=== PATIENT | male | born 1955 | race Caucasian/White ===

== ENCOUNTER 2023-07-18 14:47 | Inpatient (IN) | payer MEDICARE, MEDICAID ==
[~2023-07-18] VITALS: Ht 182.9 cm; Wt 72.5 kg
[2023-07-18] MEDS ORDERED: VANCOMYCIN 1GM/WATER(PEG/NADA) 200 ML IV ONE (16:00)
[2023-07-18] MEDS ORDERED: MORPHINE SULFATE 4 MG/ML SYRINGE IVP PRN (16:00)
[2023-07-18] MEDS ORDERED: DEXTROSE 50%-WATER 25 GM/50 ML SYRINGE IVP PRN (16:00)
[2023-07-18] MEDS ORDERED: ONDANSETRON HCL 4 MG/2 ML VIAL IVP PRN (16:00)
[2023-07-18] MEDS ORDERED: PIPERACILLIN/TAZO 3.375 GM/D5W 50 ML IV ONE (17:00)
[2023-07-18] MEDS: HEPARIN SODIUM,PORCINE 5,000 UNITS/ML VIAL SQ SCH (17:10)
[2023-07-18 17:20] LABS: BASOPHILS % (AUTO) 0.1 % (0.0-2.0); EOSINOPHILS % (AUTO) 0 % (1.0-6.0); HEMATOCRIT 28.6 % (41-53); HEMOGLOBIN 8.9 g/dL (13.5-17.5); LYMPHOCYTES # (AUTO) 0.3 K/uL (1.0-4.8); MEAN CORPUSCULAR VOLUME 68 fL (80-100); MONOCYTES # (AUTO) 0.4 K/uL (0.1-1.0); NEUTROPHILS # (AUTO) 33.4 K/uL (1.8-7.7); PLATELET COUNT (AUTO) 336 K/uL (150-450); RED BLOOD CELL COUNT(AUTO) 4.22 MIL/uL (4.50-5.90); RED CELL DISTRIBUTION WIDTH 16.6 % (11.5-14.5)
[2023-07-18 17:32] LABS: NEUTROPHILS % (AUTO) 97.9 % (40.0-70.0)
[2023-07-18 17:35] LABS: WHITE BLOOD COUNT (AUTO) 34.1 K/uL (4.5-11.0)
[2023-07-18 17:38] LABS: ANION GAP 8 mmol/L (8-16); CARBON DIOXIDE 29 mmol/L (22-29); CHLORIDE 99 mmol/L (98-107); CREATININE 1.08 mg/dL (0.60-1.30); GLOMERULAR FILTR. RATE CALC > 60 mL/min (>60); GLUCOSE,RANDOM 141 mg/dL (70-110); POTASSIUM 3.9 mmol/L (3.5-5.1); SODIUM SERUM 136 mmol/L (136-145); UREA NITROGEN, BLOOD 24 mg/dL (7-18)
[2023-07-18 17:49] LABS: LACTIC ACID 2.4 mmol/L (0.4-2.0)
[2023-07-18 17:52] LABS: ALANINE AMINOTRANSFERASE 11 U/L (12-78); ALBUMIN 1.4 g/dL (3.4-5.0); ALKALINE PHOSPHATASE 130 U/L (46-116); ASPARTATE AMINOTRANSFERASE 47 U/L (15-37); C-REACTIVE PROTEIN QUANT 19.84 mg/dL (0.00-0.30); TOTAL PROTEIN, SERUM 7.5 g/dL (6.4-8.2)
[2023-07-18 17:59] LABS: COVID AG,FIA SOURCE NASAL SWAB
[2023-07-18 18:00] LABS: RBC MORPHOLOGY COMMENT ABNORMAL RBC MORPH
[2023-07-18 18:03] LABS: ERYTHROCYTE SEDIMENTATION RATE 83 MM/HR (0-20)
[2023-07-18 18:11] LABS: SARS-COV2 (COVID) ANTIGEN,FIA Negative (Negative)
[2023-07-18] MEDS ORDERED: 0.9% SODIUM CHLORIDE 10 ML SYRINGE IVP PRN (19:00)
[2023-07-18] MEDS ORDERED: SODIUM CHLORIDE 0.9% 2,750 ML IV ONE (19:00)
[2023-07-18 21:10] VITALS: BP 122/71; PULSE 150; RESP 22; TEMP 99.5
[2023-07-18] MEDS ORDERED: DILTIAZEM HCL 5 MG/ML 5 ML VIAL IVP ONE (21:30)
[2023-07-18] MEDS: FAMOTIDINE 20 MG TABLET PO SCH (21:50)
[2023-07-18] MEDS: DOCUSATE SODIUM 100 MG CAPSULE PO SCH (21:51)
[2023-07-18] MEDS: MORPHINE SULFATE 2 MG/ML SYRINGE IVP PRN (21:51)
[2023-07-18] MEDS: CARVEDILOL 6.25 MG TABLET PO SCH (21:51)
[2023-07-18] MEDS: PIPERACILLIN/TAZO 3.375 GM/D5W 50 ML IV SCH (23:54)
[2023-07-19] VITALS: BP 118/60; PULSE 107; RESP 18; TEMP 98.1
[2023-07-19 00:38] LABS: TROPONIN I-HIGH SENSITIVITY 77 ng/L (<76)
[2023-07-19 04:00] VITALS: BP 96/56; PULSE 105; RESP 18; TEMP 97.9
[2023-07-19] MEDS: PIPERACILLIN/TAZO 3.375 GM/D5W 50 ML IV SCH ×3 (05:40→17:13)
[2023-07-19 07:20] LABS: BASOPHILS % (AUTO) 0.1 % (0.0-2.0); EOSINOPHILS % (AUTO) 0 % (1.0-6.0); HEMATOCRIT 24.7 % (41-53); HEMOGLOBIN 7.8 g/dL (13.5-17.5); LYMPHOCYTES # (AUTO) 0.3 K/uL (1.0-4.8); LYMPHOCYTES % (AUTO) 1.2 % (22.0-44.0); MEAN CORPUSCULAR HEMOGLOBIN 21.3 pg (26.0-34.0); MEAN CORPUSCULAR HGB CONC 31.5 G/dL (31.0-37.0); MEAN CORPUSCULAR VOLUME 68 fL (80-100); MONOCYTES # (AUTO) 0.3 K/uL (0.1-1.0); MONOCYTES % (AUTO) 1.4 % (2.0-9.0); NEUTROPHILS # (AUTO) 23.9 K/uL (1.8-7.7); PLATELET COUNT (AUTO) 217 K/uL (150-450); RED BLOOD CELL COUNT(AUTO) 3.65 MIL/uL (4.50-5.90); RED CELL DISTRIBUTION WIDTH 16.9 % (11.5-14.5); WHITE BLOOD COUNT (AUTO) 24.6 K/uL (4.5-11.0)
[2023-07-19 07:25] LABS: NEUTROPHILS % (AUTO) 97.3 % (40.0-70.0)
[2023-07-19 07:38] LABS: TROPONIN I-HIGH SENSITIVITY 68 ng/L (<76)
[2023-07-19 07:40] LABS: ANION GAP 10 mmol/L (8-16); CALCIUM, TOTAL 8.3 mg/dL (8.8-10.5); CARBON DIOXIDE 25 mmol/L (22-29); CHLORIDE 101 mmol/L (98-107); CREATININE 0.97 mg/dL (0.60-1.30); GLOMERULAR FILTR. RATE CALC > 60 mL/min (>60); GLUCOSE,RANDOM 115 mg/dL (70-110); POTASSIUM 3.9 mmol/L (3.5-5.1); SODIUM SERUM 136 mmol/L (136-145); UREA NITROGEN, BLOOD 29 mg/dL (7-18)
[2023-07-19] MEDS: DOCUSATE SODIUM 100 MG CAPSULE PO SCH ×3 (09:00→21:56)
[2023-07-19] MEDS: HEPARIN SODIUM,PORCINE 5,000 UNITS/ML VIAL SQ SCH ×2 (09:20→17:14)
[2023-07-19] MEDS: HYDROCODONE/ACETAMINOPHEN 5-325 MG TABLET PO PRN ×2 (09:21→21:58)
[2023-07-19] MEDS: FAMOTIDINE 20 MG TABLET PO SCH ×2 (09:21→21:56)
[2023-07-19] MEDS: CARVEDILOL 6.25 MG TABLET PO SCH ×2 (09:21→21:56)
[2023-07-19] MEDS: MULTIVITAMINS WITH MINERALS, THERAPEUTIC TABLET PO SCH (09:21)
[2023-07-19] MEDS: VANCOMYCIN 1GM/WATER(PEG/NADA) 200 ML IV SCH ×2 (09:28→21:57)
[2023-07-19 17:21] LABS: GLUCOMETER DEV NAME(LOC) 5S.2C; GLUCOSE,POINT OF CARE 122 MG/DL (70-110)
[2023-07-19 17:21] LABS: GLUCOMETER DEV NAME(LOC) 5S.2C; GLUCOSE,POINT OF CARE 98 MG/DL (70-110)
[2023-07-19] MEDS: INSULIN LISPRO 100 UNITS/ML SQ PRN ×2 (17:27→22:51)
[2023-07-19] MEDS: MORPHINE SULFATE 2 MG/ML SYRINGE IVP PRN (18:43)
[2023-07-19 20:00] VITALS: BP 96/59; PULSE 74; RESP 18; TEMP 98.1
[2023-07-20] VITALS: BP 98/65; PULSE 82; RESP 18; TEMP 98.8
[2023-07-20] MEDS: PIPERACILLIN/TAZO 3.375 GM/D5W 50 ML IV SCH ×4 (00:11→17:20)
[2023-07-20] MEDS: HEPARIN SODIUM,PORCINE 5,000 UNITS/ML VIAL SQ SCH ×3 (00:11→17:24)
[2023-07-20] MEDS: MORPHINE SULFATE 2 MG/ML SYRINGE IVP PRN ×3 (00:12→13:17)
[2023-07-20 01:11] LABS: GLUCOMETER DEV NAME(LOC) 5N.1C; GLUCOSE,POINT OF CARE 151 MG/DL (70-110)
[2023-07-20 01:16] LABS: GLUCOMETER DEV NAME(LOC) 5N.2C; GLUCOSE,POINT OF CARE 167 MG/DL (70-110)
[2023-07-20] MEDS: HYDROCODONE/ACETAMINOPHEN 5-325 MG TABLET PO PRN ×5 (02:04→17:19)
[2023-07-20 04:00] VITALS: BP 95/60; PULSE 80; RESP 19; TEMP 97.8
[2023-07-20] MEDS: INSULIN LISPRO 100 UNITS/ML SQ PRN ×3 (06:40→17:30)
[2023-07-20 08:02] LABS: GLUCOMETER DEV NAME(LOC) 5N.2C; GLUCOSE,POINT OF CARE 174 MG/DL (70-110)
[2023-07-20 08:52] VITALS: BP 92/54; PULSE 73; RESP 15; TEMP 94
[2023-07-20 09:00] LABS: ANION GAP 10 mmol/L (8-16); CALCIUM, TOTAL 8.5 mg/dL (8.8-10.5); CARBON DIOXIDE 24 mmol/L (22-29); CHLORIDE 100 mmol/L (98-107); CREATININE 1.03 mg/dL (0.60-1.30); GLOMERULAR FILTR. RATE CALC > 60 mL/min (>60); GLUCOSE,RANDOM 141 mg/dL (70-110); POTASSIUM 3.3 mmol/L (3.5-5.1); SODIUM SERUM 134 mmol/L (136-145); UREA NITROGEN, BLOOD 47 mg/dL (7-18); VANCOMYCIN,RANDOM 18.2 mcg/mL (25.0-50.0)
[2023-07-20] MEDS: CARVEDILOL 6.25 MG TABLET PO SCH ×2 (09:00→21:07)
[2023-07-20] MEDS: FAMOTIDINE 20 MG TABLET PO SCH ×2 (09:09→21:07)
[2023-07-20] MEDS: DOCUSATE SODIUM 100 MG CAPSULE PO SCH ×3 (09:10→21:06)
[2023-07-20] MEDS: MULTIVITAMINS WITH MINERALS, THERAPEUTIC TABLET PO SCH (09:10)
[2023-07-20] MEDS: VANCOMYCIN 1GM/WATER(PEG/NADA) 200 ML IV SCH (09:10)
[2023-07-20] MEDS ORDERED: POTASSIUM CHLORIDE 20 MEQ ER TABLET PO PRN (10:30)
[2023-07-20 11:13] VITALS: BP 93/46; PULSE 75; RESP 16; TEMP 92.3
[2023-07-20 12:41] LABS: GLUCOMETER DEV NAME(LOC) 5N.1C; GLUCOSE,POINT OF CARE 159 MG/DL (70-110)
[2023-07-20 14:06] LABS: EOSINOPHILS % (AUTO) 0.1 % (1.0-6.0); HEMOGLOBIN 8.8 g/dL (13.5-17.5); LYMPHOCYTES # (AUTO) 0.9 K/uL (1.0-4.8); LYMPHOCYTES % (AUTO) 4.3 % (22.0-44.0); MEAN CORPUSCULAR HEMOGLOBIN 20.9 pg (26.0-34.0); MEAN CORPUSCULAR HGB CONC 31.3 G/dL (31.0-37.0); MEAN CORPUSCULAR VOLUME 67 fL (80-100); MONOCYTES # (AUTO) 0.5 K/uL (0.1-1.0); MONOCYTES % (AUTO) 2.3 % (2.0-9.0); NEUTROPHILS # (AUTO) 18.7 K/uL (1.8-7.7); PLATELET COUNT (AUTO) 242 K/uL (150-450); RED CELL DISTRIBUTION WIDTH 17.3 % (11.5-14.5); WHITE BLOOD COUNT (AUTO) 20.1 K/uL (4.5-11.0)
[2023-07-20 14:12] LABS: NEUTROPHILS % (AUTO) 93.3 % (40.0-70.0)
[2023-07-20 16:00] VITALS: BP 98/60; PULSE 83; RESP 18; TEMP 95
[2023-07-20 18:46] LABS: GLUCOMETER DEV NAME(LOC) 5N.2C; GLUCOSE,POINT OF CARE 156 MG/DL (70-110)
[2023-07-20 19:43] VITALS: BP 94/61; PULSE 94; RESP 20; TEMP 97.1
[2023-07-20] MEDS: VANCOMYCIN HCL 750 MG in DEXTROSE 5%-WATER 250 ML IV SCH (21:07)
[2023-07-21] VITALS: BP 94/51; PULSE 84; RESP 19; TEMP 96.4
[2023-07-21] MEDS: HEPARIN SODIUM,PORCINE 5,000 UNITS/ML VIAL SQ SCH ×3 (00:23→17:06)
[2023-07-21 04:00] VITALS: BP 98/55; PULSE 87; RESP 19; TEMP 97.1
[2023-07-21 06:17] LABS: GLUCOMETER DEV NAME(LOC) 5N.1C; GLUCOSE,POINT OF CARE 139 MG/DL (70-110)
[2023-07-21] MEDS: VANCOMYCIN HCL 750 MG in DEXTROSE 5%-WATER 250 ML IV SCH ×2 (08:00→21:03)
[2023-07-21] MEDS: CARVEDILOL 6.25 MG TABLET PO SCH ×2 (09:18→21:04)
[2023-07-21] MEDS: MULTIVITAMINS WITH MINERALS, THERAPEUTIC TABLET PO SCH (09:18)
[2023-07-21] MEDS: DOCUSATE SODIUM 100 MG CAPSULE PO SCH ×2 (09:18→21:00)
[2023-07-21] MEDS: FAMOTIDINE 20 MG TABLET PO SCH ×2 (09:18→21:04)
[2023-07-21 09:25] VITALS: BP 105/59; PULSE 97; RESP 20; TEMP 97.6
[2023-07-21 09:26] LABS: BASOPHILS % (AUTO) 0.1 % (0.0-2.0); EOSINOPHILS % (AUTO) 0 % (1.0-6.0); HEMATOCRIT 26.6 % (41-53); HEMOGLOBIN 8.5 g/dL (13.5-17.5); MEAN CORPUSCULAR HEMOGLOBIN 21.2 pg (26.0-34.0); MEAN CORPUSCULAR HGB CONC 31.9 G/dL (31.0-37.0); MEAN CORPUSCULAR VOLUME 66 fL (80-100); MONOCYTES # (AUTO) 0.6 K/uL (0.1-1.0); MONOCYTES % (AUTO) 3.2 % (2.0-9.0); NEUTROPHILS # (AUTO) 18.5 K/uL (1.8-7.7); PLATELET COUNT (AUTO) 262 K/uL (150-450); RED BLOOD CELL COUNT(AUTO) 4.01 MIL/uL (4.50-5.90); RED CELL DISTRIBUTION WIDTH 17.2 % (11.5-14.5); WHITE BLOOD COUNT (AUTO) 20.2 K/uL (4.5-11.0)
[2023-07-21 09:28] LABS: NEUTROPHILS % (AUTO) 91.7 % (40.0-70.0)
[2023-07-21 09:29] LABS: RBC MORPHOLOGY COMMENT ABNORMAL RBC MORPH
[2023-07-21 09:32] LABS: ANION GAP 12 mmol/L (8-16); CALCIUM, TOTAL 8.4 mg/dL (8.8-10.5); CARBON DIOXIDE 23 mmol/L (22-29); CHLORIDE 101 mmol/L (98-107); CREATININE 0.97 mg/dL (0.60-1.30); GLOMERULAR FILTR. RATE CALC > 60 mL/min (>60); GLUCOSE,RANDOM 150 mg/dL (70-110); POTASSIUM 3.6 mmol/L (3.5-5.1); SODIUM SERUM 136 mmol/L (136-145); UREA NITROGEN, BLOOD 49 mg/dL (7-18)
[2023-07-21] MEDS: PIPERACILLIN/TAZO 3.375 GM/D5W 50 ML IV SCH ×2 (09:35→19:03)
[2023-07-21 11:46] LABS: GLUCOMETER DEV NAME(LOC) 5N.2C; GLUCOSE,POINT OF CARE 150 MG/DL (70-110)
[2023-07-21 13:55] VITALS: BP 109/62; PULSE 82; RESP 18; TEMP 97.8
[2023-07-21 16:00] VITALS: BP 112/61; PULSE 84; RESP 18; TEMP 98
[2023-07-21 18:47] LABS: GLUCOMETER DEV NAME(LOC) 5N.1C; GLUCOSE,POINT OF CARE 130 MG/DL (70-110)
[2023-07-21 23:26] LABS: GLUCOMETER DEV NAME(LOC) 5N.1C; GLUCOSE,POINT OF CARE 168 MG/DL (70-110)
[2023-07-22] VITALS (13 sets, daily range): BP systolic 97–141; BP diastolic 50–68; PULSE 46–93; RESP 18–35; TEMP 93.4–97.9; O2SAT 94–100
[2023-07-22] MEDS: HEPARIN SODIUM,PORCINE 5,000 UNITS/ML VIAL SQ SCH ×3 (00:27→17:01)
[2023-07-22] MEDS: PIPERACILLIN/TAZO 3.375 GM/D5W 50 ML IV SCH ×3 (00:27→17:01)
[2023-07-22 07:36] LABS: ANION GAP 12 mmol/L (8-16); CALCIUM, TOTAL 8.5 mg/dL (8.8-10.5); CARBON DIOXIDE 25 mmol/L (22-29); CHLORIDE 101 mmol/L (98-107); CREATININE 0.98 mg/dL (0.60-1.30); GLOMERULAR FILTR. RATE CALC > 60 mL/min (>60); GLUCOSE,RANDOM 168 mg/dL (70-110); POTASSIUM 3.9 mmol/L (3.5-5.1); SODIUM SERUM 138 mmol/L (136-145); UREA NITROGEN, BLOOD 49 mg/dL (7-18)
[2023-07-22] MEDS: PROPOFOL 1000 MG/ISO-OSM 100 ML IV PRN ×3 (08:00→18:32)
[2023-07-22 08:41] LABS: ABG BASE EXCESS -0.4 mmol/L (-2.0-3.0); ABG CARBOXYHEMOGLOBIN 0.4 % (0.0-1.5); ABG HCO3 24.1 mmol/L (22.0-26.0); ABG METHEMOGLOBIN 0.1 % (0.0-1.5); ABG OXYGEN CONTENT 14.7 mL/dL (15.0-23.0); ABG OXYGEN SATURATION 99.8 % (95.0-98.0); ABG OXYHEMOGLOBIN 99.3 % (94.0-100.0); ABG PCO2 43 mmHg (35-45); ABG PH 7.379 (7.35-7.450); ALLEN TEST, BLOOD GAS Positive; PO2, ARTERIAL BG 280.3 mmHg (79.0-87.0); SITE, BLOOD GAS RT RADIAL; SOURCE, BLOOD GAS ARTERIAL; TEMPERATURE, FAHRENHEIT, BG 95.1 FAHREN (96.0-98.6)
[2023-07-22 08:42] LABS: ABG A-A DIFF O2 321.8 mmHg (10-20.0); O2 DEVICE,BLOOD GAS VENTILATOR (ROOM AIR); PEEP,BG 5 cm H2O; SPONTANEOUS VT, BG 516 ml; VT, ABG 500 ml
[2023-07-22] MEDS: DOCUSATE SODIUM 100 MG CAPSULE PO SCH (09:00)
[2023-07-22] MEDS: CARVEDILOL 6.25 MG TABLET PO SCH ×2 (09:00→20:21)
[2023-07-22] MEDS: FAMOTIDINE 20 MG TABLET PO SCH ×2 (09:00→22:02)
[2023-07-22] MEDS: MULTIVITAMINS WITH MINERALS, THERAPEUTIC TABLET PO SCH (09:00)
[2023-07-22] MEDS ORDERED: SODIUM CHLORIDE 0.9% 250 ML IV ONE (09:01)
[2023-07-22] MEDS: VANCOMYCIN HCL 750 MG in DEXTROSE 5%-WATER 250 ML IV SCH ×2 (09:03→19:57)
[2023-07-22 09:54] LABS: BASOPHILS % (AUTO) 0.5 % (0.0-2.0); EOSINOPHILS % (AUTO) 0.2 % (1.0-6.0); HEMATOCRIT 28.2 % (41-53); HEMOGLOBIN 8.8 g/dL (13.5-17.5); LYMPHOCYTES # (AUTO) 1.4 K/uL (1.0-4.8); LYMPHOCYTES % (AUTO) 8.4 % (22.0-44.0); MEAN CORPUSCULAR HGB CONC 31.2 G/dL (31.0-37.0); MEAN CORPUSCULAR VOLUME 67 fL (80-100); MONOCYTES # (AUTO) 0.5 K/uL (0.1-1.0); NEUTROPHILS # (AUTO) 14.7 K/uL (1.8-7.7); PLATELET COUNT (AUTO) 291 K/uL (150-450); RED BLOOD CELL COUNT(AUTO) 4.19 MIL/uL (4.50-5.90); RED CELL DISTRIBUTION WIDTH 17.8 % (11.5-14.5); WHITE BLOOD COUNT (AUTO) 16.7 K/uL (4.5-11.0)
[2023-07-22 09:55] LABS: NEUTROPHILS % (AUTO) 87.9 % (40.0-70.0)
[2023-07-22] MEDS: NOREPINEPHRINE 8 MG/0.9 % NACL 250 ML IV PRN (10:00)
[2023-07-22 10:07] LABS: GLUCOMETER DEV NAME(LOC) 5S.1B; GLUCOSE,POINT OF CARE 200 MG/DL (70-110)
[2023-07-22] MEDS ORDERED: SODIUM CHLORIDE 0.9% 0 ML ONE (10:27)
[2023-07-22] MEDS ORDERED: SODIUM CHLORIDE 0.9% 500 ML IV ONE (10:29)
[2023-07-22 11:03] LABS: RBC MORPHOLOGY COMMENT ABNORMAL RBC MORPH
[2023-07-22] MEDS: INSULIN LISPRO 100 UNITS/ML SQ PRN ×2 (12:30→22:22)
[2023-07-22 13:22] LABS: ABG HCO3 26.5 mmol/L (22.0-26.0); ABG METHEMOGLOBIN 0.3 % (0.0-1.5); ABG OXYGEN CONTENT 14.4 mL/dL (15.0-23.0); ABG OXYGEN SATURATION 99.7 % (95.0-98.0); ABG OXYHEMOGLOBIN 99.4 % (94.0-100.0); ABG PCO2 31 mmHg (35-45); ABG PH 7.527 (7.35-7.450); ABG TOTAL HEMOGLOBIN 9.8 G/dL (12.0-18.0); PO2, ARTERIAL BG 252.5 mmHg (79.0-87.0); SOURCE, BLOOD GAS ARTERIAL; TEMPERATURE, FAHRENHEIT, BG 96.2 FAHREN (96.0-98.6)
[2023-07-22 13:23] LABS: O2 DEVICE,BLOOD GAS VENTILATOR (ROOM AIR); PEEP,BG 5 cm H2O; SITE, BLOOD GAS ARTERIAL LINE; SPONTANEOUS VT, BG 522 ml; VT, ABG 500 ml
[2023-07-22 14:46] LABS: GLUCOSE,POINT OF CARE 176 MG/DL (70-110)
[2023-07-22 19:01] LABS: GLUCOMETER DEV NAME(LOC) ICUN.5; GLUCOSE,POINT OF CARE 129 MG/DL (70-110)
[2023-07-22 19:30] LABS: ALANINE AMINOTRANSFERASE 36 U/L (12-78); ALBUMIN 1.4 g/dL (3.4-5.0); ALKALINE PHOSPHATASE 108 U/L (46-116); ANION GAP 11 mmol/L (8-16); ASPARTATE AMINOTRANSFERASE 96 U/L (15-37); BILIRUBIN,TOTAL 0.9 mg/dL (0.1-1.0); CALCIUM, TOTAL 8.1 mg/dL (8.8-10.5); CARBON DIOXIDE 24 mmol/L (22-29); CHLORIDE 102 mmol/L (98-107); CREATININE 1.11 mg/dL (0.60-1.30); GLOMERULAR FILTR. RATE CALC > 60 mL/min (>60); GLUCOSE,RANDOM 152 mg/dL (70-110); PHOSPHORUS 4.9 mg/dL (2.5-4.9); POTASSIUM 3.5 mmol/L (3.5-5.1); SODIUM SERUM 137 mmol/L (136-145); TOTAL PROTEIN, SERUM 6.6 g/dL (6.4-8.2); UREA NITROGEN, BLOOD 58 mg/dL (7-18)
[2023-07-22 19:37] LABS: ABG BASE EXCESS 0.6 mmol/L (-2.0-3.0); ABG CARBOXYHEMOGLOBIN 0.2 % (0.0-1.5); ABG HCO3 25.3 mmol/L (22.0-26.0); ABG METHEMOGLOBIN 0.3 % (0.0-1.5); ABG OXYGEN CONTENT 13.9 mL/dL (15.0-23.0); ABG OXYGEN SATURATION 99.7 % (95.0-98.0); ABG OXYHEMOGLOBIN 99.2 % (94.0-100.0); ABG PCO2 31 mmHg (35-45); ABG PH 7.508 (7.35-7.450); ABG TOTAL HEMOGLOBIN 9.5 G/dL (12.0-18.0); PO2, ARTERIAL BG 230.4 mmHg (79.0-87.0); SOURCE, BLOOD GAS ARTERIAL
[2023-07-22 19:38] LABS: O2 DEVICE,BLOOD GAS VENTILATOR (ROOM AIR); PEEP,BG 5 cm H2O; SITE, BLOOD GAS ARTERIAL LINE; VT, ABG 500 ml
[2023-07-22 21:37] LABS: APPEARANCE,URINE HAZY (CLEAR); BILIRUBIN,URINE NEGATIVE (NEGATIVE); COLOR,URINE YELLOW (YELLOW); GLUCOSE, URINE (UA) TRACE mg/dL (NEGATIVE); KETONES,URINE NEGATIVE (NEGATIVE); LEUKOCYTE ESTERASE ,URINE TRACE (NEGATIVE); NITRATE,URINE NEGATIVE (NEGATIVE); OCCULT BLOOD,URINE SMALL (NEGATIVE); PROTEIN,URINE TRACE mg/dL (NEGATIVE); SPECIFIC GRAVITIY, URINE 1.031 (1.003-1.030); UROBILINOGEN,URINE <=1.0 mg/dL (<=1.0)
[2023-07-22 21:43] LABS: ALCOHOL, URINE DRUG SCREEN NEGATIVE (NEGATIVE); AMPHET/METH SCREEN,URINE NEGATIVE (NEGATIVE); BARBITURATE SCREEN, URINE NEGATIVE (NEGATIVE); BENZODIAZEPINES SCREEN,URINE NEGATIVE (NEGATIVE); CANNABINOID SCREEN,URINE POSITIVE (NEGATIVE); COCAINE SCREEN,URINE NEGATIVE (NEGATIVE); METHADONE SCREEN, URINE POSITIVE (NEGATIVE); OPIATE SCREEN,URINE POSITIVE (NEGATIVE); PHENCYCLIDINE SCREEN,URINE NEGATIVE (NEGATIVE)
[2023-07-22 21:59] LABS: BACTERIA,URINE None Seen /HPF (None Seen); SQUAMOUS EPITHELIAL CELL,UR None Seen /LPF (None Seen); WBC,URINE 0-2 /HPF (0-5)
[2023-07-22] MEDS: DOCUSATE SODIUM 100 MG/10 ML LIQUID UDCUP NG SCH (22:02)
[2023-07-23] VITALS (13 sets, daily range): BP systolic 117–138; BP diastolic 42–54; PULSE 43–74; RESP 20–29; TEMP 92.1–99.3; O2SAT 97–100
[2023-07-23] MEDS: PIPERACILLIN/TAZO 3.375 GM/D5W 50 ML IV SCH ×4 (00:01→17:04)
[2023-07-23] MEDS: HEPARIN SODIUM,PORCINE 5,000 UNITS/ML VIAL SQ SCH ×3 (00:02→17:04)
[2023-07-23 00:18] LABS: ABG BASE EXCESS 0.3 mmol/L (-2.0-3.0); ABG CARBOXYHEMOGLOBIN 0.5 % (0.0-1.5); ABG HCO3 24.8 mmol/L (22.0-26.0); ABG METHEMOGLOBIN 0.3 % (0.0-1.5); ABG OXYGEN CONTENT 13.6 mL/dL (15.0-23.0); ABG OXYGEN SATURATION 99.3 % (95.0-98.0); ABG OXYHEMOGLOBIN 98.5 % (94.0-100.0); ABG PCO2 35 mmHg (35-45); ABG TOTAL HEMOGLOBIN 9.5 G/dL (12.0-18.0); PO2, ARTERIAL BG 188.1 mmHg (79.0-87.0); SOURCE, BLOOD GAS ARTERIAL
[2023-07-23 00:19] LABS: ALLEN TEST, BLOOD GAS Positive; O2 DEVICE,BLOOD GAS VENTILATOR (ROOM AIR); PEEP,BG 5 cm H2O; SITE, BLOOD GAS ARTERIAL LINE; VT, ABG 500 ml
[2023-07-23 00:55] LABS: BASOPHILS % (AUTO) 0.2 % (0.0-2.0); EOSINOPHILS % (AUTO) 0.4 % (1.0-6.0); HEMATOCRIT 25.2 % (41-53); HEMOGLOBIN 7.8 g/dL (13.5-17.5); LYMPHOCYTES # (AUTO) 1.7 K/uL (1.0-4.8); LYMPHOCYTES % (AUTO) 11.9 % (22.0-44.0); MEAN CORPUSCULAR HEMOGLOBIN 20.8 pg (26.0-34.0); MEAN CORPUSCULAR HGB CONC 30.8 G/dL (31.0-37.0); MEAN CORPUSCULAR VOLUME 67 fL (80-100); MONOCYTES # (AUTO) 0.5 K/uL (0.1-1.0); MONOCYTES % (AUTO) 3.4 % (2.0-9.0); NEUTROPHILS # (AUTO) 11.6 K/uL (1.8-7.7); NEUTROPHILS % (AUTO) 84.1 % (40.0-70.0); PLATELET COUNT (AUTO) 188 K/uL (150-450); RED BLOOD CELL COUNT(AUTO) 3.75 MIL/uL (4.50-5.90); RED CELL DISTRIBUTION WIDTH 17.1 % (11.5-14.5); WHITE BLOOD COUNT (AUTO) 13.8 K/uL (4.5-11.0)
[2023-07-23 01:08] LABS: TROPONIN I-HIGH SENSITIVITY 20 ng/L (<76)
[2023-07-23 01:12] LABS: ALANINE AMINOTRANSFERASE 31 U/L (12-78); ALBUMIN 1.3 g/dL (3.4-5.0); ALKALINE PHOSPHATASE 101 U/L (46-116); ANION GAP 8 mmol/L (8-16); ASPARTATE AMINOTRANSFERASE 72 U/L (15-37); BILIRUBIN,TOTAL 0.9 mg/dL (0.1-1.0); CALCIUM, TOTAL 8.2 mg/dL (8.8-10.5); CARBON DIOXIDE 27 mmol/L (22-29); CHLORIDE 102 mmol/L (98-107); CREATININE 1.06 mg/dL (0.60-1.30); GLOMERULAR FILTR. RATE CALC > 60 mL/min (>60); GLUCOSE,RANDOM 153 mg/dL (70-110); PHOSPHORUS 4.7 mg/dL (2.5-4.9); POTASSIUM 3.2 mmol/L (3.5-5.1); SODIUM SERUM 137 mmol/L (136-145); TOTAL PROTEIN, SERUM 6.4 g/dL (6.4-8.2); UREA NITROGEN, BLOOD 58 mg/dL (7-18)
[2023-07-23 01:14] LABS: INR 1.2 (0.9-1.1)
[2023-07-23] MEDS: POTASSIUM CHL 10 MEQ/WATER 50 ML IV PRN ×6 (01:19→12:08)
[2023-07-23 01:27] LABS: RBC MORPHOLOGY COMMENT ABNORMAL RBC MORPH
[2023-07-23] MEDS: PROPOFOL 1000 MG/ISO-OSM 100 ML IV PRN ×5 (01:27→22:57)
[2023-07-23 01:31] LABS: GLUCOSE,POINT OF CARE 161 MG/DL (70-110)
[2023-07-23 06:02] LABS: BASOPHILS % (AUTO) 0.2 % (0.0-2.0); EOSINOPHILS % (AUTO) 0.9 % (1.0-6.0); HEMATOCRIT 26.3 % (41-53); HEMOGLOBIN 8.2 g/dL (13.5-17.5); LYMPHOCYTES # (AUTO) 1.9 K/uL (1.0-4.8); MEAN CORPUSCULAR HEMOGLOBIN 20.9 pg (26.0-34.0); MEAN CORPUSCULAR HGB CONC 31.2 G/dL (31.0-37.0); MEAN CORPUSCULAR VOLUME 67 fL (80-100); MONOCYTES # (AUTO) 0.6 K/uL (0.1-1.0); MONOCYTES % (AUTO) 4.3 % (2.0-9.0); NEUTROPHILS # (AUTO) 12.3 K/uL (1.8-7.7); NEUTROPHILS % (AUTO) 81.6 % (40.0-70.0); PLATELET COUNT (AUTO) 223 K/uL (150-450); RED BLOOD CELL COUNT(AUTO) 3.92 MIL/uL (4.50-5.90); RED CELL DISTRIBUTION WIDTH 17.4 % (11.5-14.5)
[2023-07-23 06:11] LABS: ABG BASE EXCESS -0.6 mmol/L (-2.0-3.0); ABG CARBOXYHEMOGLOBIN 0.6 % (0.0-1.5); ABG HCO3 24.3 mmol/L (22.0-26.0); ABG METHEMOGLOBIN 0.3 % (0.0-1.5); ABG OXYGEN CONTENT 13.3 mL/dL (15.0-23.0); ABG OXYGEN SATURATION 99.5 % (95.0-98.0); ABG OXYHEMOGLOBIN 98.6 % (94.0-100.0); ABG PCO2 30 mmHg (35-45); ABG PH 7.492 (7.35-7.450); ABG TOTAL HEMOGLOBIN 9.3 G/dL (12.0-18.0); PO2, ARTERIAL BG 164.1 mmHg (79.0-87.0); SITE, BLOOD GAS ARTERIAL LINE; SOURCE, BLOOD GAS ARTERIAL
[2023-07-23 06:12] LABS: O2 DEVICE,BLOOD GAS VENTILATOR (ROOM AIR); PEEP,BG 5 cm H2O; VT, ABG 500 ml
[2023-07-23 06:13] LABS: ALANINE AMINOTRANSFERASE 30 U/L (12-78); ALBUMIN 1.4 g/dL (3.4-5.0); ALKALINE PHOSPHATASE 101 U/L (46-116); ANION GAP 12 mmol/L (8-16); ASPARTATE AMINOTRANSFERASE 66 U/L (15-37); CALCIUM, TOTAL 8.2 mg/dL (8.8-10.5); CARBON DIOXIDE 25 mmol/L (22-29); CHLORIDE 102 mmol/L (98-107); CREATININE 0.95 mg/dL (0.60-1.30); GLOMERULAR FILTR. RATE CALC > 60 mL/min (>60); GLUCOSE,RANDOM 124 mg/dL (70-110); POTASSIUM 3.6 mmol/L (3.5-5.1); SODIUM SERUM 139 mmol/L (136-145); TOTAL PROTEIN, SERUM 6.6 g/dL (6.4-8.2); UREA NITROGEN, BLOOD 56 mg/dL (7-18)
[2023-07-23 06:21] LABS: RBC MORPHOLOGY COMMENT ABNORMAL RBC MORPH
[2023-07-23 06:56] LABS: GLUCOMETER DEV NAME(LOC) ICUN.5; GLUCOSE,POINT OF CARE 138 MG/DL (70-110)
[2023-07-23] MEDS: VANCOMYCIN HCL 750 MG in DEXTROSE 5%-WATER 250 ML IV SCH ×2 (08:10→21:41)
[2023-07-23] MEDS: MULTIVITAMINS WITH MINERALS, THERAPEUTIC TABLET PO SCH (08:11)
[2023-07-23] MEDS: CARVEDILOL 6.25 MG TABLET PO SCH ×2 (08:11→21:00)
[2023-07-23] MEDS: FAMOTIDINE 20 MG TABLET PO SCH ×2 (08:11→21:00)
[2023-07-23] MEDS: DOCUSATE SODIUM 100 MG/10 ML LIQUID UDCUP NG SCH ×2 (08:12→21:00)
[2023-07-23 11:43] LABS: BASOPHILS % (AUTO) 0.2 % (0.0-2.0); EOSINOPHILS % (AUTO) 1.5 % (1.0-6.0); HEMATOCRIT 25.8 % (41-53); LYMPHOCYTES # (AUTO) 1.6 K/uL (1.0-4.8); LYMPHOCYTES % (AUTO) 13.8 % (22.0-44.0); MEAN CORPUSCULAR HEMOGLOBIN 20.7 pg (26.0-34.0); MEAN CORPUSCULAR HGB CONC 30.9 G/dL (31.0-37.0); MEAN CORPUSCULAR VOLUME 67 fL (80-100); MONOCYTES # (AUTO) 0.4 K/uL (0.1-1.0); NEUTROPHILS # (AUTO) 9.4 K/uL (1.8-7.7); NEUTROPHILS % (AUTO) 81.5 % (40.0-70.0); PLATELET COUNT (AUTO) 185 K/uL (150-450); RED BLOOD CELL COUNT(AUTO) 3.84 MIL/uL (4.50-5.90); RED CELL DISTRIBUTION WIDTH 17.2 % (11.5-14.5); WHITE BLOOD COUNT (AUTO) 11.6 K/uL (4.5-11.0)
[2023-07-23 12:30] LABS: RBC MORPHOLOGY COMMENT ABNORMAL RBC MORPH
[2023-07-23 18:06] LABS: GLUCOMETER DEV NAME(LOC) ICUN.5; GLUCOSE,POINT OF CARE 120 MG/DL (70-110)
[2023-07-23 18:15] LABS: ALANINE AMINOTRANSFERASE 26 U/L (12-78); ALBUMIN 1.4 g/dL (3.4-5.0); ALKALINE PHOSPHATASE 109 U/L (46-116); ANION GAP 9 mmol/L (8-16); ASPARTATE AMINOTRANSFERASE 51 U/L (15-37); CALCIUM, TOTAL 8.1 mg/dL (8.8-10.5); CARBON DIOXIDE 26 mmol/L (22-29); CHLORIDE 103 mmol/L (98-107); CREATININE 0.99 mg/dL (0.60-1.30); GLOMERULAR FILTR. RATE CALC > 60 mL/min (>60); GLUCOSE,RANDOM 128 mg/dL (70-110); PHOSPHORUS 3.5 mg/dL (2.5-4.9); SODIUM SERUM 138 mmol/L (136-145); TOTAL PROTEIN, SERUM 6.6 g/dL (6.4-8.2); UREA NITROGEN, BLOOD 48 mg/dL (7-18)
[2023-07-23] MEDS: CHLORHEXIDINE GLUCONATE 2% TOWELETTE [2'S/6'S] TP SCH (21:49)
[2023-07-24] VITALS (13 sets, daily range): BP systolic 111–183; BP diastolic 38–62; PULSE 63–75; RESP 15–36; TEMP 99.3–100.1; O2SAT 98–99
[2023-07-24] MEDS: PIPERACILLIN/TAZO 3.375 GM/D5W 50 ML IV SCH ×4 (00:17→18:19)
[2023-07-24] MEDS: HEPARIN SODIUM,PORCINE 5,000 UNITS/ML VIAL SQ SCH ×3 (00:17→16:21)
[2023-07-24] MEDS: PROPOFOL 1000 MG/ISO-OSM 100 ML IV PRN ×3 (03:52→12:03)
[2023-07-24 04:32] LABS: GLUCOSE,POINT OF CARE 117 MG/DL (70-110)
[2023-07-24 05:20] LABS: BASOPHILS % (AUTO) 0.1 % (0.0-2.0); EOSINOPHILS % (AUTO) 0.6 % (1.0-6.0); HEMATOCRIT 26.4 % (41-53); HEMOGLOBIN 8.4 g/dL (13.5-17.5); LYMPHOCYTES # (AUTO) 1.7 K/uL (1.0-4.8); LYMPHOCYTES % (AUTO) 9.6 % (22.0-44.0); MEAN CORPUSCULAR HEMOGLOBIN 21.3 pg (26.0-34.0); MEAN CORPUSCULAR HGB CONC 31.7 G/dL (31.0-37.0); MEAN CORPUSCULAR VOLUME 67 fL (80-100); MONOCYTES # (AUTO) 0.5 K/uL (0.1-1.0); MONOCYTES % (AUTO) 2.8 % (2.0-9.0); NEUTROPHILS # (AUTO) 15.8 K/uL (1.8-7.7); PLATELET COUNT (AUTO) 226 K/uL (150-450); RED BLOOD CELL COUNT(AUTO) 3.93 MIL/uL (4.50-5.90); RED CELL DISTRIBUTION WIDTH 17.1 % (11.5-14.5); WHITE BLOOD COUNT (AUTO) 18.2 K/uL (4.5-11.0)
[2023-07-24 05:28] LABS: NEUTROPHILS % (AUTO) 86.9 % (40.0-70.0)
[2023-07-24 05:37] LABS: GLUCOMETER DEV NAME(LOC) ICUN.5; GLUCOSE,POINT OF CARE 138 MG/DL (70-110)
[2023-07-24 05:39] LABS: RBC MORPHOLOGY COMMENT ABNORMAL RBC MORPH
[2023-07-24 05:45] LABS: ANION GAP 11 mmol/L (8-16); CARBON DIOXIDE 26 mmol/L (22-29); CHLORIDE 105 mmol/L (98-107); CREATININE 1.06 mg/dL (0.60-1.30); GLOMERULAR FILTR. RATE CALC > 60 mL/min (>60); GLUCOSE,RANDOM 135 mg/dL (70-110); POTASSIUM 3.9 mmol/L (3.5-5.1); SODIUM SERUM 142 mmol/L (136-145); UREA NITROGEN, BLOOD 39 mg/dL (7-18); VANCOMYCIN,RANDOM 26.6 mcg/mL (25.0-50.0)
[2023-07-24] MEDS: VANCOMYCIN HCL 750 MG in DEXTROSE 5%-WATER 250 ML IV SCH (08:28)
[2023-07-24] MEDS: ACETAMINOPHEN 325 MG TABLET PO PRN ×2 (08:29→22:07)
[2023-07-24] MEDS: NOREPINEPHRINE 8 MG/0.9 % NACL 250 ML IV PRN (08:29)
[2023-07-24] MEDS: DOCUSATE SODIUM 100 MG/10 ML LIQUID UDCUP NG SCH ×2 (08:30→22:07)
[2023-07-24] MEDS: MULTIVITAMINS WITH MINERALS, THERAPEUTIC TABLET PO SCH (08:30)
[2023-07-24] MEDS: CARVEDILOL 6.25 MG TABLET PO SCH ×2 (08:30→22:07)
[2023-07-24] MEDS: FAMOTIDINE 20 MG TABLET PO SCH ×2 (08:30→22:07)
[2023-07-24] MEDS: LevETIRAcetam 500 MG in DEXTROSE 5%-WATER 100 ML IV SCH ×2 (09:15→22:02)
[2023-07-24] MEDS: MIDAZOLAM HCL 100 MG in SODIUM CHLORIDE 0.9% 180 ML IV PRN (10:37)
[2023-07-24 14:16] LABS: GLUCOMETER DEV NAME(LOC) ICUN.5; GLUCOSE,POINT OF CARE 156 MG/DL (70-110)
[2023-07-24] MEDS: INSULIN LISPRO 100 UNITS/ML SQ PRN (14:25)
[2023-07-24 17:46] LABS: GLUCOMETER DEV NAME(LOC) ICUN.5; GLUCOSE,POINT OF CARE 120 MG/DL (70-110)
[2023-07-24] MEDS: CHLORHEXIDINE GLUCONATE 2% TOWELETTE [2'S/6'S] TP SCH (22:07)
[2023-07-25] VITALS (15 sets, daily range): BP systolic 101–152; BP diastolic 34–48; PULSE 63–76; RESP 21–36; TEMP 99.2–99.8; O2SAT 95–99
[2023-07-25] MEDS: PROPOFOL 1000 MG/ISO-OSM 100 ML IV PRN ×4 (00:56→20:28)
[2023-07-25] MEDS: PIPERACILLIN/TAZO 3.375 GM/D5W 50 ML IV SCH ×4 (01:02→17:48)
[2023-07-25] MEDS: HEPARIN SODIUM,PORCINE 5,000 UNITS/ML VIAL SQ SCH ×3 (01:02→16:27)
[2023-07-25 05:35] LABS: BASOPHILS % (AUTO) 0.1 % (0.0-2.0); EOSINOPHILS % (AUTO) 0.8 % (1.0-6.0); HEMATOCRIT 25.2 % (41-53); LYMPHOCYTES # (AUTO) 1.4 K/uL (1.0-4.8); LYMPHOCYTES % (AUTO) 13.5 % (22.0-44.0); MEAN CORPUSCULAR HEMOGLOBIN 21.5 pg (26.0-34.0); MEAN CORPUSCULAR HGB CONC 31.6 G/dL (31.0-37.0); MEAN CORPUSCULAR VOLUME 68 fL (80-100); MONOCYTES # (AUTO) 0.4 K/uL (0.1-1.0); MONOCYTES % (AUTO) 3.9 % (2.0-9.0); NEUTROPHILS # (AUTO) 8.5 K/uL (1.8-7.7); NEUTROPHILS % (AUTO) 81.7 % (40.0-70.0); PLATELET COUNT (AUTO) 131 K/uL (150-450); WHITE BLOOD COUNT (AUTO) 10.4 K/uL (4.5-11.0)
[2023-07-25 05:53] LABS: ANION GAP 10 mmol/L (8-16); CALCIUM, TOTAL 7.8 mg/dL (8.8-10.5); CARBON DIOXIDE 25 mmol/L (22-29); CHLORIDE 105 mmol/L (98-107); CREATININE 1.17 mg/dL (0.60-1.30); GLOMERULAR FILTR. RATE CALC > 60 mL/min (>60); GLUCOSE,RANDOM 134 mg/dL (70-110); POTASSIUM 3.6 mmol/L (3.5-5.1); SODIUM SERUM 140 mmol/L (136-145); UREA NITROGEN, BLOOD 31 mg/dL (7-18)
[2023-07-25 06:24] LABS: RBC MORPHOLOGY COMMENT ABNORMAL RBC MORPH
[2023-07-25 08:11] LABS: GLUCOSE,POINT OF CARE 130 MG/DL (70-110)
[2023-07-25 08:11] LABS: GLUCOSE,POINT OF CARE 126 MG/DL (70-110)
[2023-07-25] MEDS: LevETIRAcetam 500 MG in DEXTROSE 5%-WATER 100 ML IV SCH ×2 (08:41→22:26)
[2023-07-25] MEDS: MULTIVITAMINS WITH MINERALS, THERAPEUTIC TABLET PO SCH (08:44)
[2023-07-25] MEDS: CARVEDILOL 6.25 MG TABLET PO SCH ×2 (08:44→22:25)
[2023-07-25] MEDS: ACETAMINOPHEN 325 MG TABLET PO PRN (08:45)
[2023-07-25] MEDS: FAMOTIDINE 20 MG TABLET PO SCH ×2 (08:45→22:26)
[2023-07-25] MEDS: DOCUSATE SODIUM 100 MG/10 ML LIQUID UDCUP NG SCH ×2 (08:46→22:25)
[2023-07-25] MEDS: VANCOMYCIN HCL 1.25 GM in DEXTROSE 5%-WATER 250 ML IV SCH (08:50)
[2023-07-25] MEDS ORDERED: SODIUM CHLORIDE 0.9% 250 ML IV ONE (10:17)
[2023-07-25] MEDS ORDERED: HydrALAZINE HCL 20 MG/ML VIAL IVP PRN (10:30)
[2023-07-25] MEDS ORDERED: INDIUM IN-111 OXYQUINOLINE/.5MCL ISOTOPE 1 EA INJ INJ ONE (12:55)
[2023-07-25] MEDS: INSULIN LISPRO 100 UNITS/ML SQ PRN (13:18)
[2023-07-25 13:26] LABS: GLUCOMETER DEV NAME(LOC) ICUN.5; GLUCOSE,POINT OF CARE 154 MG/DL (70-110)
[2023-07-25] MEDS ORDERED: SODIUM CHLORIDE 0.9% 100 ML ONE (17:04)
[2023-07-25] MEDS ORDERED: IOHEXOL 350 MG/ML 100 ML VIAL ONE (17:04)
[2023-07-25] MEDS ORDERED: MIDAZOLAM HCL 2 MG/2 ML VIAL ONE (19:53)
[2023-07-25] MEDS: CHLORHEXIDINE GLUCONATE 2% TOWELETTE [2'S/6'S] TP SCH (22:26)
[2023-07-26] VITALS (14 sets, daily range): BP systolic 121–153; BP diastolic 39–52; PULSE 68–84; RESP 22–30; TEMP 99.4–100.4; O2SAT 97–98
[2023-07-26] MEDS: ACETAMINOPHEN 325 MG TABLET PO PRN ×4 (00:41→21:13)
[2023-07-26] MEDS: HEPARIN SODIUM,PORCINE 5,000 UNITS/ML VIAL SQ SCH ×3 (00:42→17:09)
[2023-07-26] MEDS: PIPERACILLIN/TAZO 3.375 GM/D5W 50 ML IV SCH ×2 (00:42→06:56)
[2023-07-26 01:21] LABS: GLUCOSE,POINT OF CARE 125 MG/DL (70-110)
[2023-07-26] MEDS: MIDAZOLAM HCL 100 MG in SODIUM CHLORIDE 0.9% 180 ML IV PRN (04:08)
[2023-07-26 05:22] LABS: CALCIUM, TOTAL 7.4 mg/dL (8.8-10.5); CREATININE 2.2 mg/dL (0.60-1.30); POTASSIUM 3.9 mmol/L (3.5-5.1)
[2023-07-26 07:01] LABS: GLUCOSE,POINT OF CARE 120 MG/DL (70-110)
[2023-07-26] MEDS: PROPOFOL 1000 MG/ISO-OSM 100 ML IV PRN (07:39)
[2023-07-26] MEDS: LevETIRAcetam 500 MG in DEXTROSE 5%-WATER 100 ML IV SCH ×2 (08:53→21:15)
[2023-07-26] MEDS: DOCUSATE SODIUM 100 MG/10 ML LIQUID UDCUP NG SCH ×2 (08:54→21:13)
[2023-07-26] MEDS: FAMOTIDINE 20 MG TABLET PO SCH ×2 (08:55→21:13)
[2023-07-26] MEDS: MULTIVITAMINS WITH MINERALS, THERAPEUTIC TABLET PO SCH (08:55)
[2023-07-26] MEDS: CARVEDILOL 6.25 MG TABLET PO SCH ×2 (08:55→21:13)
[2023-07-26] MEDS: VANCOMYCIN HCL 1.25 GM in DEXTROSE 5%-WATER 250 ML IV SCH (08:55)
[2023-07-26 11:38] LABS: BASOPHILS % (AUTO) 0.3 % (0.0-2.0); HEMOGLOBIN 7.7 g/dL (13.5-17.5); LYMPHOCYTES # (AUTO) 1.3 K/uL (1.0-4.8); LYMPHOCYTES % (AUTO) 11.1 % (22.0-44.0); MEAN CORPUSCULAR HEMOGLOBIN 21.2 pg (26.0-34.0); MEAN CORPUSCULAR HGB CONC 30.7 G/dL (31.0-37.0); MEAN CORPUSCULAR VOLUME 69 fL (80-100); MONOCYTES # (AUTO) 0.5 K/uL (0.1-1.0); MONOCYTES % (AUTO) 3.8 % (2.0-9.0); NEUTROPHILS % (AUTO) 83.8 % (40.0-70.0); PLATELET COUNT (AUTO) 121 K/uL (150-450); RED BLOOD CELL COUNT(AUTO) 3.62 MIL/uL (4.50-5.90); RED CELL DISTRIBUTION WIDTH 17.4 % (11.5-14.5)
[2023-07-26 11:57] LABS: RBC MORPHOLOGY COMMENT ABNORMAL RBC MORPH
[2023-07-26] MEDS ORDERED: PIPERACILLIN SODIUM/TAZOBACTAM 2.25 GM in DEXTROSE 5%-WATER 50 ML IV SCH (12:00)
[2023-07-26] MEDS: INSULIN LISPRO 100 UNITS/ML SQ PRN (12:54)
[2023-07-26] MEDS: CefTRIAXone SODIUM 2 GM in DEXTROSE 5%-WATER 50 ML IV SCH (17:09)
[2023-07-26 19:36] LABS: GLUCOMETER DEV NAME(LOC) ICUN.5; GLUCOSE,POINT OF CARE 179 MG/DL (70-110)
[2023-07-26 19:36] LABS: GLUCOMETER DEV NAME(LOC) ICUN.5; GLUCOSE,POINT OF CARE 126 MG/DL (70-110)
[2023-07-26] MEDS: CHLORHEXIDINE GLUCONATE 2% TOWELETTE [2'S/6'S] TP SCH (21:14)
[2023-07-26 21:27] LABS: GLUCOSE,POINT OF CARE 131 MG/DL (70-110)
[2023-07-27] VITALS (13 sets, daily range): BP systolic 98–137; BP diastolic 37–50; PULSE 60–84; RESP 17–36; TEMP 97.5–101.2; O2SAT 97–98
[2023-07-27] MEDS ORDERED: SODIUM CHLORIDE 0.9% 250 ML IV ONE (00:11)
[2023-07-27 06:02] LABS: BASOPHILS % (AUTO) 0.1 % (0.0-2.0); EOSINOPHILS % (AUTO) 0.6 % (1.0-6.0); HEMATOCRIT 26.8 % (41-53); HEMOGLOBIN 8.3 g/dL (13.5-17.5); LYMPHOCYTES # (AUTO) 1.7 K/uL (1.0-4.8); LYMPHOCYTES % (AUTO) 8.6 % (22.0-44.0); MEAN CORPUSCULAR HEMOGLOBIN 21.2 pg (26.0-34.0); MEAN CORPUSCULAR HGB CONC 31.1 G/dL (31.0-37.0); MEAN CORPUSCULAR VOLUME 68 fL (80-100); MONOCYTES # (AUTO) 0.9 K/uL (0.1-1.0); MONOCYTES % (AUTO) 4.4 % (2.0-9.0); NEUTROPHILS # (AUTO) 17.1 K/uL (1.8-7.7); PLATELET COUNT (AUTO) 177 K/uL (150-450); RED BLOOD CELL COUNT(AUTO) 3.95 MIL/uL (4.50-5.90); RED CELL DISTRIBUTION WIDTH 17.4 % (11.5-14.5); WHITE BLOOD COUNT (AUTO) 19.8 K/uL (4.5-11.0)
[2023-07-27 06:15] LABS: ALBUMIN 1.2 g/dL (3.4-5.0); BILIRUBIN,TOTAL 0.7 mg/dL (0.1-1.0); CALCIUM, TOTAL 7.6 mg/dL (8.8-10.5); CREATININE 3.92 mg/dL (0.60-1.30); MAGNESIUM 2.6 mg/dL (1.80-2.40); PHOSPHORUS 8.1 mg/dL (2.5-4.9); POTASSIUM 4.6 mmol/L (3.5-5.1); TOTAL PROTEIN, SERUM 7.1 g/dL (6.4-8.2)
[2023-07-27] MEDS: CefTRIAXone SODIUM 2 GM in DEXTROSE 5%-WATER 50 ML IV SCH ×2 (06:44→17:13)
[2023-07-27 06:49] LABS: NEUTROPHILS % (AUTO) 86.3 % (40.0-70.0)
[2023-07-27] MEDS ORDERED: VANCOMYCIN HCL 750 MG in DEXTROSE 5%-WATER 250 ML IV SCH (08:00)
[2023-07-27] MEDS ORDERED: VANCOMYCIN 1GM/WATER(PEG/NADA) 200 ML IV PRN (08:00)
[2023-07-27] MEDS: HEPARIN SODIUM,PORCINE 5,000 UNITS/ML VIAL SQ SCH ×4 (08:23→23:03)
[2023-07-27] MEDS: DOCUSATE SODIUM 100 MG/10 ML LIQUID UDCUP NG SCH ×2 (08:23→20:30)
[2023-07-27] MEDS: CARVEDILOL 6.25 MG TABLET PO SCH ×2 (08:24→20:30)
[2023-07-27] MEDS: FAMOTIDINE 20 MG TABLET PO SCH ×2 (08:24→20:30)
[2023-07-27] MEDS: ACETAMINOPHEN 325 MG TABLET PO PRN (08:24)
[2023-07-27] MEDS: MULTIVITAMINS WITH MINERALS, THERAPEUTIC TABLET PO SCH (08:24)
[2023-07-27] MEDS: LevETIRAcetam 500 MG in DEXTROSE 5%-WATER 100 ML IV SCH (08:25)
[2023-07-27 09:10] LABS: PROTEIN,URINE RANDOM 99 mg/dL (0-11.9)
[2023-07-27 09:16] LABS: SODIUM,URINE RANDOM 26 mmol/l (20-110)
[2023-07-27] MEDS ORDERED: LORazepam 2 MG/ML VIAL ONE (11:49)
[2023-07-27] MEDS ORDERED: LORazepam 2 MG/ML VIAL IVP ONE (12:00)
[2023-07-27 12:12] LABS: GLUCOSE,POINT OF CARE 83 MG/DL (70-110)
[2023-07-27] MEDS: INSULIN LISPRO 100 UNITS/ML SQ PRN (14:06)
[2023-07-27] MEDS: LevETIRAcetam 1,500 MG in DEXTROSE 5%-WATER 100 ML IV SCH (14:06)
[2023-07-27] MEDS ORDERED: BUMETANIDE 0.25 MG/ML 4 ML VIAL IVP ONE (15:45)
[2023-07-27] MEDS ORDERED: VALPROATE SODIUM 1,000 MG in DEXTROSE 5%-WATER 100 ML IV ONE (17:00)
[2023-07-27 17:47] LABS: GLUCOSE,POINT OF CARE 141 MG/DL (70-110)
[2023-07-27 18:21] LABS: APPEARANCE,URINE HAZY (CLEAR); BILIRUBIN,URINE NEGATIVE (NEGATIVE); COLOR,URINE YELLOW (YELLOW); GLUCOSE, URINE (UA) TRACE mg/dL (NEGATIVE); KETONES,URINE NEGATIVE (NEGATIVE); LEUKOCYTE ESTERASE ,URINE NEGATIVE (NEGATIVE); NITRATE,URINE NEGATIVE (NEGATIVE); OCCULT BLOOD,URINE LARGE (NEGATIVE); PROTEIN,URINE 30-70 mg/dL (NEGATIVE); SPECIFIC GRAVITIY, URINE 1.048 (1.003-1.030); UROBILINOGEN,URINE <=1.0 mg/dL (<=1.0)
[2023-07-27 18:39] LABS: BACTERIA,URINE Few /HPF (None Seen)
[2023-07-27] MEDS ORDERED: SODIUM CHLORIDE 0.9% 500 ML IV ONE (20:37)
[2023-07-27 21:41] LABS: GLUCOSE,POINT OF CARE 128 MG/DL (70-110)
[2023-07-27] MEDS: CHLORHEXIDINE GLUCONATE 2% TOWELETTE [2'S/6'S] TP SCH (23:03)
[2023-07-28] VITALS (21 sets, daily range): BP systolic 91–158; BP diastolic 34–83; PULSE 55–101; RESP 18–28; TEMP 95.6–98.3; O2SAT 94–100
[2023-07-28] MEDS ORDERED: SODIUM CHLORIDE 0.9% 250 ML IV ONE (00:35)
[2023-07-28 01:01] LABS: GLUCOMETER DEV NAME(LOC) ICUN.5; GLUCOSE,POINT OF CARE 115 MG/DL (70-110)
[2023-07-28] MEDS: LevETIRAcetam 1,500 MG in DEXTROSE 5%-WATER 100 ML IV SCH ×2 (01:56→15:29)
[2023-07-28] MEDS: VALPROATE SODIUM 500 MG in DEXTROSE 5%-WATER 50 ML IV SCH ×2 (04:44→17:53)
[2023-07-28 06:21] LABS: GLUCOSE,POINT OF CARE 114 MG/DL (70-110)
[2023-07-28] MEDS: CefTRIAXone SODIUM 2 GM in DEXTROSE 5%-WATER 50 ML IV SCH (06:34)
[2023-07-28 06:47] LABS: BASOPHILS % (AUTO) 0.2 % (0.0-2.0); EOSINOPHILS % (AUTO) 2.4 % (1.0-6.0); HEMATOCRIT 25.1 % (41-53); HEMOGLOBIN 7.9 g/dL (13.5-17.5); LYMPHOCYTES # (AUTO) 1.5 K/uL (1.0-4.8); LYMPHOCYTES % (AUTO) 14.2 % (22.0-44.0); MEAN CORPUSCULAR HEMOGLOBIN 21.6 pg (26.0-34.0); MEAN CORPUSCULAR HGB CONC 31.3 G/dL (31.0-37.0); MEAN CORPUSCULAR VOLUME 69 fL (80-100); MONOCYTES # (AUTO) 0.5 K/uL (0.1-1.0); MONOCYTES % (AUTO) 4.6 % (2.0-9.0); NEUTROPHILS # (AUTO) 8.4 K/uL (1.8-7.7); NEUTROPHILS % (AUTO) 78.6 % (40.0-70.0); PLATELET COUNT (AUTO) 139 K/uL (150-450); RED BLOOD CELL COUNT(AUTO) 3.64 MIL/uL (4.50-5.90); RED CELL DISTRIBUTION WIDTH 17.8 % (11.5-14.5); WHITE BLOOD COUNT (AUTO) 10.7 K/uL (4.5-11.0)
[2023-07-28 07:05] LABS: RBC MORPHOLOGY COMMENT ABNORMAL RBC MORPH
[2023-07-28 07:32] LABS: MAGNESIUM 2.9 mg/dL (1.80-2.40); VANCOMYCIN,RANDOM 29.6 mcg/mL (25.0-50.0)
[2023-07-28 08:04] LABS: PHOSPHORUS 10.7 mg/dL (2.5-4.9)
[2023-07-28 08:31] LABS: CALCIUM, TOTAL 7.7 mg/dL (8.8-10.5); CREATININE 4.61 mg/dL (0.60-1.30); POTASSIUM 4.6 mmol/L (3.5-5.1)
[2023-07-28] MEDS ORDERED: BENZOCAINE 10% 7 GM GEL TP ONE (08:45)
[2023-07-28] MEDS: HEPARIN SODIUM,PORCINE 5,000 UNITS/ML VIAL SQ SCH ×3 (08:58→23:50)
[2023-07-28] MEDS ORDERED: BENZOCAINE/MENTHOL/ZINC CL 20% 11.9 GM GEL TP ONE (09:00)
[2023-07-28] MEDS: DOCUSATE SODIUM 100 MG/10 ML LIQUID UDCUP NG SCH ×2 (09:00→21:21)
[2023-07-28] MEDS: MULTIVITAMINS WITH MINERALS, THERAPEUTIC TABLET PO SCH (09:00)
[2023-07-28] MEDS: PROPOFOL 1000 MG/ISO-OSM 100 ML IV PRN ×2 (09:01→12:19)
[2023-07-28] MEDS: CARVEDILOL 6.25 MG TABLET PO SCH ×2 (09:02→21:21)
[2023-07-28] MEDS: FAMOTIDINE 20 MG TABLET PO SCH ×2 (09:02→21:21)
[2023-07-28] MEDS ORDERED: BENZOCAINE 20% 50 MCG/SPRAY 57 GM TP ONE (09:15)
[2023-07-28] MEDS ORDERED: DOPamine 400MG/D5W[STANDARD] 250 ML IV ONE (09:24)
[2023-07-28] MEDS: NOREPINEPHRINE 8 MG/0.9 % NACL 250 ML IV PRN (09:33)
[2023-07-28] MEDS ORDERED: HEPARIN SODIUM,PORCINE 1,000 UNITS/ML VIAL IVP ONE (12:00)
[2023-07-28] MEDS: MIDAZOLAM HCL 100 MG in SODIUM CHLORIDE 0.9% 180 ML IV PRN (12:21)
[2023-07-28] MEDS ORDERED: HEPARIN SODIUM,PORCINE 1,000 UNITS/ML VIAL ONE (12:33)
[2023-07-28] MEDS: DOPamine 400MG/D5W[STANDARD] 250 ML IV PRN ×2 (14:29→20:00)
[2023-07-28] MEDS ORDERED: LORazepam 2 MG/ML VIAL IVP PRN (21:15)
[2023-07-28] MEDS: CHLORHEXIDINE GLUCONATE 2% TOWELETTE [2'S/6'S] TP SCH (21:21)
[2023-07-28 23:51] LABS: GLUCOMETER DEV NAME(LOC) ICUN.5; GLUCOSE,POINT OF CARE 116 MG/DL (70-110)
[2023-07-28 23:51] LABS: GLUCOMETER DEV NAME(LOC) ICUN.5; GLUCOSE,POINT OF CARE 150 MG/DL (70-110)
[2023-07-29] VITALS (22 sets, daily range): BP systolic 109–143; BP diastolic 37–91; PULSE 73–98; RESP 19–28; TEMP 96.8–100.1; O2SAT 96–100
[2023-07-29] MEDS: LevETIRAcetam 1,500 MG in DEXTROSE 5%-WATER 100 ML IV SCH ×2 (01:58→14:17)
[2023-07-29] MEDS: MIDAZOLAM HCL 100 MG in SODIUM CHLORIDE 0.9% 180 ML IV PRN ×2 (02:01→23:32)
[2023-07-29] MEDS: DOPamine 400MG/D5W[STANDARD] 250 ML IV PRN ×2 (02:08→08:24)
[2023-07-29] MEDS: VALPROATE SODIUM 500 MG in DEXTROSE 5%-WATER 50 ML IV SCH ×2 (05:06→17:07)
[2023-07-29 05:53] LABS: BASOPHILS % (AUTO) 0.2 % (0.0-2.0); EOSINOPHILS % (AUTO) 1.4 % (1.0-6.0); HEMATOCRIT 29.2 % (41-53); HEMOGLOBIN 9.2 g/dL (13.5-17.5); LYMPHOCYTES # (AUTO) 1.3 K/uL (1.0-4.8); LYMPHOCYTES % (AUTO) 7.6 % (22.0-44.0); MEAN CORPUSCULAR HEMOGLOBIN 21.4 pg (26.0-34.0); MEAN CORPUSCULAR HGB CONC 31.4 G/dL (31.0-37.0); MEAN CORPUSCULAR VOLUME 68 fL (80-100); MONOCYTES # (AUTO) 1.1 K/uL (0.1-1.0); MONOCYTES % (AUTO) 6.6 % (2.0-9.0); NEUTROPHILS # (AUTO) 14.6 K/uL (1.8-7.7); NEUTROPHILS % (AUTO) 84.2 % (40.0-70.0); PLATELET COUNT (AUTO) 274 K/uL (150-450); RED BLOOD CELL COUNT(AUTO) 4.28 MIL/uL (4.50-5.90); RED CELL DISTRIBUTION WIDTH 18.3 % (11.5-14.5); WHITE BLOOD COUNT (AUTO) 17.4 K/uL (4.5-11.0)
[2023-07-29 06:04] LABS: CALCIUM, TOTAL 8.2 mg/dL (8.8-10.5); CREATININE 3.19 mg/dL (0.60-1.30); MAGNESIUM 2.3 mg/dL (1.80-2.40); PHOSPHORUS 8.2 mg/dL (2.5-4.9); POTASSIUM 4.4 mmol/L (3.5-5.1)
[2023-07-29 06:25] LABS: RBC MORPHOLOGY COMMENT ABNORMAL RBC MORPH
[2023-07-29] MEDS: INSULIN LISPRO 100 UNITS/ML SQ PRN (06:50)
[2023-07-29 07:11] LABS: COMPLEMENT C3 110 mg/dL (82-167); COMPLEMENT C4 27 mg/dL (12-38)
[2023-07-29 08:06] LABS: GLUCOSE,POINT OF CARE 149 MG/DL (70-110)
[2023-07-29 08:06] LABS: HEPATITIS C AB (EIA) Reactive (Non Reactive)
[2023-07-29 08:06] LABS: ALBUMIN URINE (ELP) Note: %; TOTAL PROTEIN URINE 83.7 mg/dL (Not Estab.)
[2023-07-29] MEDS: HEPARIN SODIUM,PORCINE 5,000 UNITS/ML VIAL SQ SCH ×3 (08:22→23:32)
[2023-07-29] MEDS: MULTIVITAMINS WITH MINERALS, THERAPEUTIC TABLET PO SCH (08:22)
[2023-07-29] MEDS: DOCUSATE SODIUM 100 MG/10 ML LIQUID UDCUP NG SCH ×2 (08:22→20:30)
[2023-07-29] MEDS: FAMOTIDINE 20 MG TABLET PO SCH ×2 (08:23→20:31)
[2023-07-29] MEDS: CARVEDILOL 6.25 MG TABLET PO SCH ×2 (08:26→20:31)
[2023-07-29] MEDS ORDERED: HEPARIN SODIUM,PORCINE 1,000 UNITS/ML VIAL IVCATH ONE ×2 (09:15)
[2023-07-29] MEDS: NOREPINEPHRINE 8 MG/0.9 % NACL 250 ML IV PRN (10:19)
[2023-07-29 19:11] LABS: GLUCOSE,POINT OF CARE 110 MG/DL (70-110)
[2023-07-29 20:31] LABS: GLUCOMETER DEV NAME(LOC) ICUN.5; GLUCOSE,POINT OF CARE 114 MG/DL (70-110)
[2023-07-29] MEDS: CHLORHEXIDINE GLUCONATE 2% TOWELETTE [2'S/6'S] TP SCH (23:11)
[2023-07-29] MEDS: ACETAMINOPHEN 325 MG TABLET PO PRN (23:33)
[2023-07-30] VITALS (24 sets, daily range): BP systolic 97–173; BP diastolic 34–52; PULSE 60–85; RESP 15–27; TEMP 97–100.2; O2SAT 96–100
[2023-07-30] MEDS: LevETIRAcetam 1,500 MG in DEXTROSE 5%-WATER 100 ML IV SCH ×2 (03:13→14:13)
[2023-07-30] MEDS: NOREPINEPHRINE 8 MG/0.9 % NACL 250 ML IV PRN ×2 (03:14→19:16)
[2023-07-30] MEDS: VALPROATE SODIUM 500 MG in DEXTROSE 5%-WATER 50 ML IV SCH ×2 (04:59→18:15)
[2023-07-30 05:11] LABS: GLUCOSE,POINT OF CARE 123 MG/DL (70-110)
[2023-07-30 05:11] LABS: GLUCOSE,POINT OF CARE 120 MG/DL (70-110)
[2023-07-30 05:29] LABS: CALCIUM, TOTAL 8.1 mg/dL (8.8-10.5); CREATININE 3.45 mg/dL (0.60-1.30); MAGNESIUM 2.4 mg/dL (1.80-2.40); PHOSPHORUS 7.5 mg/dL (2.5-4.9); POTASSIUM 3.8 mmol/L (3.5-5.1)
[2023-07-30 06:07] LABS: BASOPHILS % (AUTO) 0.3 % (0.0-2.0); EOSINOPHILS % (AUTO) 1.3 % (1.0-6.0); HEMATOCRIT 25.6 % (41-53); LYMPHOCYTES # (AUTO) 1.5 K/uL (1.0-4.8); LYMPHOCYTES % (AUTO) 10.8 % (22.0-44.0); MEAN CORPUSCULAR HEMOGLOBIN 21.5 pg (26.0-34.0); MEAN CORPUSCULAR HGB CONC 31.3 G/dL (31.0-37.0); MEAN CORPUSCULAR VOLUME 69 fL (80-100); MONOCYTES # (AUTO) 1.5 K/uL (0.1-1.0); MONOCYTES % (AUTO) 10.9 % (2.0-9.0); NEUTROPHILS # (AUTO) 10.3 K/uL (1.8-7.7); NEUTROPHILS % (AUTO) 76.7 % (40.0-70.0); PLATELET COUNT (AUTO) 219 K/uL (150-450); RED BLOOD CELL COUNT(AUTO) 3.74 MIL/uL (4.50-5.90); RED CELL DISTRIBUTION WIDTH 18.4 % (11.5-14.5); WHITE BLOOD COUNT (AUTO) 13.4 K/uL (4.5-11.0)
[2023-07-30 08:56] LABS: RBC MORPHOLOGY COMMENT ABNORMAL RBC MORPH
[2023-07-30] MEDS: DOCUSATE SODIUM 100 MG/10 ML LIQUID UDCUP NG SCH ×2 (09:07→20:38)
[2023-07-30] MEDS: FAMOTIDINE 20 MG TABLET PO SCH ×2 (09:07→21:16)
[2023-07-30] MEDS: MULTIVITAMINS WITH MINERALS, THERAPEUTIC TABLET PO SCH (09:07)
[2023-07-30] MEDS: CARVEDILOL 6.25 MG TABLET PO SCH ×2 (09:07→21:16)
[2023-07-30] MEDS: HEPARIN SODIUM,PORCINE 5,000 UNITS/ML VIAL SQ SCH ×3 (09:07→23:51)
[2023-07-30] MEDS ORDERED: HEPARIN SODIUM,PORCINE 1,000 UNITS/ML VIAL IVP ONE (12:00)
[2023-07-30] MEDS: MIDAZOLAM HCL 100 MG in SODIUM CHLORIDE 0.9% 180 ML IV PRN (14:59)
[2023-07-30] MEDS ORDERED: SODIUM CHLORIDE 0.9% 250 ML IV ONE (18:51)
[2023-07-30 21:22] LABS: GLUCOSE,POINT OF CARE 126 MG/DL (70-110)
[2023-07-30 21:22] LABS: GLUCOSE,POINT OF CARE 120 MG/DL (70-110)
[2023-07-30] MEDS: CHLORHEXIDINE GLUCONATE 2% TOWELETTE [2'S/6'S] TP SCH (23:12)
[2023-07-30 23:31] LABS: GLUCOMETER DEV NAME(LOC) ICUN.5; GLUCOSE,POINT OF CARE 116 MG/DL (70-110)
[2023-07-31] VITALS (14 sets, daily range): BP systolic 113–175; BP diastolic 37–76; PULSE 62–81; RESP 20–21; TEMP 98.6–99.5; O2SAT 97–99
[2023-07-31] MEDS: MIDAZOLAM HCL 100 MG in SODIUM CHLORIDE 0.9% 180 ML IV PRN ×2 (02:09→18:43)
[2023-07-31] MEDS: LevETIRAcetam 1,500 MG in DEXTROSE 5%-WATER 100 ML IV SCH ×2 (02:09→13:31)
[2023-07-31] MEDS: VALPROATE SODIUM 500 MG in DEXTROSE 5%-WATER 50 ML IV SCH ×2 (05:23→17:38)
[2023-07-31 05:35] LABS: BASOPHILS % (AUTO) 0.5 % (0.0-2.0); EOSINOPHILS % (AUTO) 1.6 % (1.0-6.0); HEMATOCRIT 25.9 % (41-53); HEMOGLOBIN 8.2 g/dL (13.5-17.5); LYMPHOCYTES # (AUTO) 1.6 K/uL (1.0-4.8); LYMPHOCYTES % (AUTO) 12.3 % (22.0-44.0); MEAN CORPUSCULAR HEMOGLOBIN 21.7 pg (26.0-34.0); MEAN CORPUSCULAR HGB CONC 31.8 G/dL (31.0-37.0); MEAN CORPUSCULAR VOLUME 68 fL (80-100); MONOCYTES # (AUTO) 1.3 K/uL (0.1-1.0); MONOCYTES % (AUTO) 10.1 % (2.0-9.0); NEUTROPHILS # (AUTO) 9.7 K/uL (1.8-7.7); NEUTROPHILS % (AUTO) 75.5 % (40.0-70.0); PLATELET COUNT (AUTO) 245 K/uL (150-450); RED BLOOD CELL COUNT(AUTO) 3.79 MIL/uL (4.50-5.90); RED CELL DISTRIBUTION WIDTH 18.4 % (11.5-14.5); WHITE BLOOD COUNT (AUTO) 12.9 K/uL (4.5-11.0)
[2023-07-31 05:53] LABS: CALCIUM, TOTAL 8.2 mg/dL (8.8-10.5); CREATININE 2.59 mg/dL (0.60-1.30); MAGNESIUM 2.2 mg/dL (1.80-2.40); PHOSPHORUS 5.9 mg/dL (2.5-4.9); POTASSIUM 3.6 mmol/L (3.5-5.1); VANCOMYCIN,RANDOM 15.9 mcg/mL (25.0-50.0)
[2023-07-31 06:15] LABS: RBC MORPHOLOGY COMMENT ABNORMAL RBC MORPH
[2023-07-31 06:26] LABS: GLUCOSE,POINT OF CARE 134 MG/DL (70-110)
[2023-07-31] MEDS: MULTIVITAMINS WITH MINERALS, THERAPEUTIC TABLET PO SCH (08:05)
[2023-07-31] MEDS: HEPARIN SODIUM,PORCINE 5,000 UNITS/ML VIAL SQ SCH ×2 (08:05→17:38)
[2023-07-31] MEDS: CARVEDILOL 6.25 MG TABLET PO SCH ×2 (08:05→21:10)
[2023-07-31] MEDS: FAMOTIDINE 20 MG TABLET PO SCH ×2 (08:06→21:10)
[2023-07-31] MEDS: DOCUSATE SODIUM 100 MG/10 ML LIQUID UDCUP NG SCH ×2 (08:06→21:00)
[2023-07-31] MEDS: NOREPINEPHRINE 8 MG/0.9 % NACL 250 ML IV PRN (11:06)
[2023-07-31] MEDS: INSULIN LISPRO 100 UNITS/ML SQ PRN (11:45)
[2023-07-31 12:16] LABS: GLUCOSE,POINT OF CARE 141 MG/DL (70-110)
[2023-07-31 13:07] LABS: HEPATITIS C RT-PCR,QNT HCV Not Detected IU/mL
[2023-07-31] MEDS ORDERED: VANCOMYCIN 1GM/WATER(PEG/NADA) 200 ML IV ONE (14:00)
[2023-07-31 15:33] LABS: C.DIFF TOXINS A&B, Stool Negative (Negative)
[2023-07-31 15:35] LABS: C.DIFF GDH ANTIGEN, Stool Positive (Negative)
[2023-07-31] MEDS: CHLORHEXIDINE GLUCONATE 2% TOWELETTE [2'S/6'S] TP SCH (21:10)
[2023-07-31 21:46] LABS: GLUCOSE,POINT OF CARE 134 MG/DL (70-110)
[2023-07-31 21:56] LABS: GLUCOMETER DEV NAME(LOC) ICUN.5; GLUCOSE,POINT OF CARE 124 MG/DL (70-110)
[2023-08-01] VITALS (15 sets, daily range): BP systolic 117–162; BP diastolic 41–45; PULSE 20–89; RESP 20–23; TEMP 98.8–100.7; O2SAT 96–100
[2023-08-01] MEDS: HEPARIN SODIUM,PORCINE 5,000 UNITS/ML VIAL SQ SCH ×3 (00:05→16:44)
[2023-08-01] MEDS: VANCOMYCIN HCL 125 MG/2.5 ML SOLUTION ORAL.SYG PO SCH ×4 (00:22→17:44)
[2023-08-01] MEDS: LevETIRAcetam 1,500 MG in DEXTROSE 5%-WATER 100 ML IV SCH ×2 (02:14→14:27)
[2023-08-01] MEDS ORDERED: SODIUM CHLORIDE 0.9% 250 ML IV ONE (02:33)
[2023-08-01] MEDS: VALPROATE SODIUM 500 MG in DEXTROSE 5%-WATER 50 ML IV SCH ×2 (04:46→16:43)
[2023-08-01 06:14] LABS: BASOPHILS % (AUTO) 0.2 % (0.0-2.0); EOSINOPHILS % (AUTO) 1.2 % (1.0-6.0); HEMATOCRIT 25.2 % (41-53); LYMPHOCYTES # (AUTO) 1.2 K/uL (1.0-4.8); LYMPHOCYTES % (AUTO) 8.2 % (22.0-44.0); MEAN CORPUSCULAR HEMOGLOBIN 21.9 pg (26.0-34.0); MEAN CORPUSCULAR HGB CONC 31.5 G/dL (31.0-37.0); MEAN CORPUSCULAR VOLUME 69 fL (80-100); MONOCYTES % (AUTO) 7.2 % (2.0-9.0); NEUTROPHILS # (AUTO) 11.8 K/uL (1.8-7.7); NEUTROPHILS % (AUTO) 83.2 % (40.0-70.0); PLATELET COUNT (AUTO) 235 K/uL (150-450); RED BLOOD CELL COUNT(AUTO) 3.64 MIL/uL (4.50-5.90); WHITE BLOOD COUNT (AUTO) 14.2 K/uL (4.5-11.0)
[2023-08-01 07:14] LABS: CALCIUM, TOTAL 8.4 mg/dL (8.8-10.5); CREATININE 2.86 mg/dL (0.60-1.30); MAGNESIUM 2.3 mg/dL (1.80-2.40); PHOSPHORUS 6.6 mg/dL (2.5-4.9); POTASSIUM 3.2 mmol/L (3.5-5.1)
[2023-08-01] MEDS: MIDAZOLAM HCL 100 MG in SODIUM CHLORIDE 0.9% 180 ML IV PRN (07:19)
[2023-08-01 09:09] LABS: RBC MORPHOLOGY COMMENT ABNORMAL RBC MORPH
[2023-08-01] MEDS: DOCUSATE SODIUM 100 MG/10 ML LIQUID UDCUP NG SCH ×2 (09:13→20:24)
[2023-08-01] MEDS: MULTIVITAMINS WITH MINERALS, THERAPEUTIC TABLET PO SCH (09:13)
[2023-08-01] MEDS: FAMOTIDINE 20 MG TABLET PO SCH ×2 (09:14→20:23)
[2023-08-01] MEDS: POTASSIUM CHL 10 MEQ/WATER 50 ML IV PRN ×2 (09:18→16:44)
[2023-08-01] MEDS: NOREPINEPHRINE 8 MG/0.9 % NACL 250 ML IV PRN (09:19)
[2023-08-01] MEDS ORDERED: LORazepam 2 MG/ML VIAL IVP PRN ×3 (10:00→13:30)
[2023-08-01] MEDS ORDERED: ONDANSETRON HCL 4 MG/2 ML VIAL IVP PRN ×2 (10:15→13:30)
[2023-08-01] MEDS ORDERED: MORPHINE SULFATE 100 MG/NS/PF 100 ML IV PRN (10:15)
[2023-08-01] MEDS ORDERED: DiphenhydrAMINE HCL 50 MG/ML VIAL IVP PRN (10:15)
[2023-08-01 11:46] LABS: GLUCOSE,POINT OF CARE 136 MG/DL (70-110)
[2023-08-01] MEDS ORDERED: DEXTROSE 50%-WATER 25 GM/50 ML SYRINGE IVP PRN (13:30)
[2023-08-01] MEDS ORDERED: POTASSIUM CHLORIDE 20 MEQ ER TABLET PO PRN (13:30)
[2023-08-01] MEDS ORDERED: DOPamine 400MG/D5W[STANDARD] 250 ML IV PRN (13:30)
[2023-08-01] MEDS ORDERED: VANCOMYCIN 1GM/WATER(PEG/NADA) 200 ML IV PRN (13:30)
[2023-08-01] MEDS ORDERED: HydrALAZINE HCL 20 MG/ML VIAL IVP PRN (13:30)
[2023-08-01] MEDS ORDERED: HYDROCODONE/ACETAMINOPHEN 5-325 MG TABLET PO PRN (13:30)
[2023-08-01 14:11] LABS: GLUCOSE,POINT OF CARE 110 MG/DL (70-110)
[2023-08-01] MEDS: ACETAMINOPHEN 325 MG TABLET PO PRN (14:26)
[2023-08-01 17:51] LABS: GLUCOSE,POINT OF CARE 117 MG/DL (70-110)
[2023-08-01] MEDS: CARVEDILOL 6.25 MG TABLET PO SCH (20:23)
[2023-08-01] MEDS: CHLORHEXIDINE GLUCONATE 2% TOWELETTE [2'S/6'S] TP SCH (23:00)
[2023-08-02] VITALS (15 sets, daily range): BP systolic 108–149; BP diastolic 43–62; PULSE 63–88; RESP 20–28; TEMP 96.9–99.6; O2SAT 96–100
[2023-08-02] MEDS: VANCOMYCIN HCL 125 MG/2.5 ML SOLUTION ORAL.SYG PO SCH ×4 (00:03→18:11)
[2023-08-02] MEDS: HEPARIN SODIUM,PORCINE 5,000 UNITS/ML VIAL SQ SCH ×3 (00:15→16:56)
[2023-08-02] MEDS: MIDAZOLAM HCL 100 MG in SODIUM CHLORIDE 0.9% 180 ML IV PRN ×3 (00:23→20:10)
[2023-08-02] MEDS: LevETIRAcetam 1,500 MG in DEXTROSE 5%-WATER 100 ML IV SCH ×2 (02:02→14:27)
[2023-08-02 04:56] LABS: GLUCOMETER DEV NAME(LOC) ICUN.5; GLUCOSE,POINT OF CARE 127 MG/DL (70-110)
[2023-08-02] MEDS: VALPROATE SODIUM 500 MG in DEXTROSE 5%-WATER 50 ML IV SCH ×2 (05:03→16:56)
[2023-08-02 05:46] LABS: GLUCOMETER DEV NAME(LOC) ICUN.5; GLUCOSE,POINT OF CARE 136 MG/DL (70-110)
[2023-08-02 05:53] LABS: BASOPHILS % (AUTO) 0.5 % (0.0-2.0); EOSINOPHILS % (AUTO) 1.3 % (1.0-6.0); HEMOGLOBIN 7.5 g/dL (13.5-17.5); MEAN CORPUSCULAR HEMOGLOBIN 22.1 pg (26.0-34.0); MEAN CORPUSCULAR HGB CONC 31.4 G/dL (31.0-37.0); MEAN CORPUSCULAR VOLUME 70 fL (80-100); MONOCYTES # (AUTO) 0.6 K/uL (0.1-1.0); MONOCYTES % (AUTO) 7.3 % (2.0-9.0); NEUTROPHILS % (AUTO) 79.9 % (40.0-70.0); PLATELET COUNT (AUTO) 178 K/uL (150-450); RED BLOOD CELL COUNT(AUTO) 3.42 MIL/uL (4.50-5.90); RED CELL DISTRIBUTION WIDTH 18.9 % (11.5-14.5); WHITE BLOOD COUNT (AUTO) 8.8 K/uL (4.5-11.0)
[2023-08-02 06:08] LABS: CALCIUM, TOTAL 8.3 mg/dL (8.8-10.5); CREATININE 2.68 mg/dL (0.60-1.30); MAGNESIUM 2.4 mg/dL (1.80-2.40); PHOSPHORUS 6.5 mg/dL (2.5-4.9); POTASSIUM 3.3 mmol/L (3.5-5.1)
[2023-08-02] MEDS: MORPHINE SULFATE 2 MG/ML SYRINGE IVP PRN (07:38)
[2023-08-02 07:52] LABS: RBC MORPHOLOGY COMMENT ABNORMAL RBC MORPH
[2023-08-02] MEDS: PROPOFOL 1000 MG/ISO-OSM 100 ML IV PRN ×4 (08:02→20:11)
[2023-08-02] MEDS: MULTIVITAMINS WITH MINERALS, THERAPEUTIC TABLET PO SCH (08:59)
[2023-08-02] MEDS: FAMOTIDINE 20 MG TABLET PO SCH ×2 (08:59→21:22)
[2023-08-02] MEDS: DOCUSATE SODIUM 100 MG/10 ML LIQUID UDCUP NG SCH ×2 (08:59→21:00)
[2023-08-02] MEDS: CARVEDILOL 6.25 MG TABLET PO SCH ×2 (09:00→21:22)
[2023-08-02] MEDS ORDERED: SODIUM CHLORIDE 0.9% 250 ML IV ONE (10:19)
[2023-08-02] MEDS: NOREPINEPHRINE 8 MG/0.9 % NACL 250 ML IV PRN (12:27)
[2023-08-02] MEDS: POTASSIUM CHL 10 MEQ/WATER 50 ML IV PRN (13:13)
[2023-08-02 17:01] LABS: GLUCOMETER DEV NAME(LOC) ICUN.5; GLUCOSE,POINT OF CARE 139 MG/DL (70-110)
[2023-08-02 18:55] LABS: GLUCOMETER DEV NAME(LOC) ICUN.5; GLUCOSE,POINT OF CARE 137 MG/DL (70-110)
[2023-08-02] MEDS: CHLORHEXIDINE GLUCONATE 2% TOWELETTE [2'S/6'S] TP SCH (22:32)
[2023-08-02 22:56] LABS: GLUCOMETER DEV NAME(LOC) ICUN.5; GLUCOSE,POINT OF CARE 133 MG/DL (70-110)
[2023-08-03] VITALS (14 sets, daily range): BP systolic 105–145; BP diastolic 44–53; PULSE 81–99; RESP 20–21; TEMP 98.3–98.8; O2SAT 96–100
[2023-08-03] MEDS: HEPARIN SODIUM,PORCINE 5,000 UNITS/ML VIAL SQ SCH ×4 (00:19→23:02)
[2023-08-03] MEDS: VANCOMYCIN HCL 125 MG/2.5 ML SOLUTION ORAL.SYG PO SCH ×5 (00:19→23:04)
[2023-08-03] MEDS: LevETIRAcetam 1,500 MG in DEXTROSE 5%-WATER 100 ML IV SCH ×2 (01:28→14:35)
[2023-08-03] MEDS: PROPOFOL 1000 MG/ISO-OSM 100 ML IV PRN ×3 (01:28→17:28)
[2023-08-03] MEDS: NOREPINEPHRINE 8 MG/0.9 % NACL 250 ML IV PRN (02:34)
[2023-08-03] MEDS ORDERED: SODIUM CHLORIDE 0.9% 0 ML IV ONE (04:31)
[2023-08-03] MEDS ORDERED: SODIUM CHLORIDE 0.9% 500 ML IV ONE ×2 (04:32→19:46)
[2023-08-03] MEDS: VALPROATE SODIUM 500 MG in DEXTROSE 5%-WATER 50 ML IV SCH ×2 (05:26→16:02)
[2023-08-03] MEDS: INSULIN LISPRO 100 UNITS/ML SQ PRN (05:43)
[2023-08-03 06:01] LABS: GLUCOMETER DEV NAME(LOC) ICUN.5; GLUCOSE,POINT OF CARE 157 MG/DL (70-110)
[2023-08-03 06:17] LABS: BASOPHILS % (AUTO) 0.4 % (0.0-2.0); HEMATOCRIT 25.6 % (41-53); LYMPHOCYTES # (AUTO) 1.1 K/uL (1.0-4.8); LYMPHOCYTES % (AUTO) 10.4 % (22.0-44.0); MEAN CORPUSCULAR HEMOGLOBIN 22.1 pg (26.0-34.0); MEAN CORPUSCULAR HGB CONC 31.4 G/dL (31.0-37.0); MEAN CORPUSCULAR VOLUME 70 fL (80-100); MONOCYTES # (AUTO) 0.6 K/uL (0.1-1.0); MONOCYTES % (AUTO) 5.6 % (2.0-9.0); NEUTROPHILS # (AUTO) 8.8 K/uL (1.8-7.7); NEUTROPHILS % (AUTO) 81.6 % (40.0-70.0); PLATELET COUNT (AUTO) 198 K/uL (150-450); RED BLOOD CELL COUNT(AUTO) 3.64 MIL/uL (4.50-5.90); RED CELL DISTRIBUTION WIDTH 19.2 % (11.5-14.5); WHITE BLOOD COUNT (AUTO) 10.7 K/uL (4.5-11.0)
[2023-08-03 06:31] LABS: ALBUMIN 1.1 g/dL (3.4-5.0); BILIRUBIN,TOTAL 0.2 mg/dL (0.1-1.0); CALCIUM, TOTAL 8.2 mg/dL (8.8-10.5); CREATININE 2.08 mg/dL (0.60-1.30); MAGNESIUM 2.1 mg/dL (1.80-2.40); PHOSPHORUS 5.5 mg/dL (2.5-4.9); POTASSIUM 3.4 mmol/L (3.5-5.1); TOTAL PROTEIN, SERUM 6.6 g/dL (6.4-8.2); VANCOMYCIN,RANDOM 14.1 mcg/mL (25.0-50.0)
[2023-08-03] MEDS: MULTIVITAMINS WITH MINERALS, THERAPEUTIC TABLET PO SCH (08:20)
[2023-08-03] MEDS: FAMOTIDINE 20 MG TABLET PO SCH ×2 (08:20→20:00)
[2023-08-03] MEDS: DOCUSATE SODIUM 100 MG/10 ML LIQUID UDCUP NG SCH ×2 (08:21→20:00)
[2023-08-03] MEDS: CARVEDILOL 6.25 MG TABLET PO SCH ×2 (08:21→20:00)
[2023-08-03 08:31] LABS: RBC MORPHOLOGY COMMENT ABNORMAL RBC MORPH
[2023-08-03] MEDS: MIDAZOLAM HCL 100 MG in SODIUM CHLORIDE 0.9% 180 ML IV PRN (09:46)
[2023-08-03] MEDS ORDERED: VANCOMYCIN 1GM/WATER(PEG/NADA) 200 ML IV ONE (11:00)
[2023-08-03 17:41] LABS: GLUCOMETER DEV NAME(LOC) ICUN.5; GLUCOSE,POINT OF CARE 111 MG/DL (70-110)
[2023-08-03 19:11] LABS: GLUCOMETER DEV NAME(LOC) ICUN.5; GLUCOSE,POINT OF CARE 135 MG/DL (70-110)
[2023-08-03] MEDS ORDERED: SODIUM CHLORIDE 0.9% 250 ML IV ONE (19:46)
[2023-08-03] MEDS: CHLORHEXIDINE GLUCONATE 2% TOWELETTE [2'S/6'S] TP SCH (23:03)
[2023-08-04] VITALS (13 sets, daily range): BP systolic 95–138; BP diastolic 43–52; PULSE 81–107; RESP 2–21; TEMP 98.8–101.3; O2SAT 96–98
[2023-08-04] MEDS: LevETIRAcetam 1,500 MG in DEXTROSE 5%-WATER 100 ML IV SCH ×2 (01:40→14:08)
[2023-08-04] MEDS: NOREPINEPHRINE 8 MG/0.9 % NACL 250 ML IV PRN (01:43)
[2023-08-04] MEDS: VALPROATE SODIUM 500 MG in DEXTROSE 5%-WATER 50 ML IV SCH ×2 (04:34→16:03)
[2023-08-04 06:01] LABS: GLUCOSE,POINT OF CARE 130 MG/DL (70-110)
[2023-08-04 06:22] LABS: BASOPHILS % (AUTO) 0.3 % (0.0-2.0); EOSINOPHILS % (AUTO) 0.9 % (1.0-6.0); HEMATOCRIT 26.4 % (41-53); HEMOGLOBIN 8.2 g/dL (13.5-17.5); LYMPHOCYTES # (AUTO) 1.2 K/uL (1.0-4.8); MEAN CORPUSCULAR HEMOGLOBIN 21.8 pg (26.0-34.0); MEAN CORPUSCULAR HGB CONC 31.1 G/dL (31.0-37.0); MEAN CORPUSCULAR VOLUME 70 fL (80-100); MONOCYTES # (AUTO) 0.7 K/uL (0.1-1.0); MONOCYTES % (AUTO) 6.4 % (2.0-9.0); NEUTROPHILS # (AUTO) 8.3 K/uL (1.8-7.7); NEUTROPHILS % (AUTO) 80.4 % (40.0-70.0); PLATELET COUNT (AUTO) 185 K/uL (150-450); RED BLOOD CELL COUNT(AUTO) 3.78 MIL/uL (4.50-5.90); RED CELL DISTRIBUTION WIDTH 21.3 % (11.5-14.5); WHITE BLOOD COUNT (AUTO) 10.3 K/uL (4.5-11.0)
[2023-08-04 06:22] LABS: GLUCOMETER DEV NAME(LOC) ICUN.5; GLUCOSE,POINT OF CARE 120 MG/DL (70-110)
[2023-08-04 06:36] LABS: CALCIUM, TOTAL 8.7 mg/dL (8.8-10.5); CREATININE 1.82 mg/dL (0.60-1.30); POTASSIUM 3.5 mmol/L (3.5-5.1)
[2023-08-04] MEDS: VANCOMYCIN HCL 125 MG/2.5 ML SOLUTION ORAL.SYG PO SCH ×3 (06:48→17:42)
[2023-08-04] MEDS: DOCUSATE SODIUM 100 MG/10 ML LIQUID UDCUP NG SCH ×2 (08:27→20:39)
[2023-08-04] MEDS: HEPARIN SODIUM,PORCINE 5,000 UNITS/ML VIAL SQ SCH ×2 (08:27→16:01)
[2023-08-04] MEDS: MULTIVITAMINS WITH MINERALS, THERAPEUTIC TABLET PO SCH (08:28)
[2023-08-04] MEDS: CARVEDILOL 6.25 MG TABLET PO SCH ×2 (08:28→20:39)
[2023-08-04] MEDS: FAMOTIDINE 20 MG TABLET PO SCH ×2 (08:28→20:39)
[2023-08-04 08:39] LABS: RBC MORPHOLOGY COMMENT ABNORMAL RBC MORPH
[2023-08-04] MEDS: INSULIN LISPRO 100 UNITS/ML SQ PRN ×2 (11:39→17:43)
[2023-08-04] MEDS: MIDAZOLAM HCL 100 MG in SODIUM CHLORIDE 0.9% 180 ML IV PRN (11:44)
[2023-08-04 12:11] LABS: GLUCOSE,POINT OF CARE 160 MG/DL (70-110)
[2023-08-04] MEDS: ACETAMINOPHEN 325 MG TABLET PO PRN (14:08)
[2023-08-04 21:21] LABS: GLUCOMETER DEV NAME(LOC) ICUN.5; GLUCOSE,POINT OF CARE 143 MG/DL (70-110)
[2023-08-04] MEDS: CHLORHEXIDINE GLUCONATE 2% TOWELETTE [2'S/6'S] TP SCH (23:20)
[2023-08-05] VITALS (14 sets, daily range): BP systolic 91–122; BP diastolic 42–73; PULSE 88–103; RESP 20–24; TEMP 99.4–100.8; O2SAT 97–98
[2023-08-05] MEDS: HEPARIN SODIUM,PORCINE 5,000 UNITS/ML VIAL SQ SCH ×3 (00:25→15:35)
[2023-08-05] MEDS: VANCOMYCIN HCL 125 MG/2.5 ML SOLUTION ORAL.SYG PO SCH ×4 (00:25→17:04)
[2023-08-05] MEDS: INSULIN LISPRO 100 UNITS/ML SQ PRN ×2 (00:27→17:43)
[2023-08-05] MEDS: LevETIRAcetam 1,500 MG in DEXTROSE 5%-WATER 100 ML IV SCH ×2 (02:55→13:48)
[2023-08-05] MEDS: ACETAMINOPHEN 325 MG TABLET PO PRN ×2 (03:21→16:05)
[2023-08-05] MEDS: VALPROATE SODIUM 500 MG in DEXTROSE 5%-WATER 50 ML IV SCH ×2 (05:20→16:05)
[2023-08-05 05:47] LABS: GLUCOSE,POINT OF CARE 149 MG/DL (70-110)
[2023-08-05 06:15] LABS: CALCIUM, TOTAL 8.5 mg/dL (8.8-10.5); CREATININE 1.65 mg/dL (0.60-1.30); POTASSIUM 3.4 mmol/L (3.5-5.1); VANCOMYCIN,RANDOM 15.1 mcg/mL (25.0-50.0)
[2023-08-05 06:16] LABS: BASOPHILS % (AUTO) 0.5 % (0.0-2.0); EOSINOPHILS % (AUTO) 0.7 % (1.0-6.0); HEMATOCRIT 23.2 % (41-53); HEMOGLOBIN 7.2 g/dL (13.5-17.5); LYMPHOCYTES # (AUTO) 1.1 K/uL (1.0-4.8); LYMPHOCYTES % (AUTO) 15.7 % (22.0-44.0); MEAN CORPUSCULAR HGB CONC 31.1 G/dL (31.0-37.0); MEAN CORPUSCULAR VOLUME 71 fL (80-100); MONOCYTES # (AUTO) 0.5 K/uL (0.1-1.0); MONOCYTES % (AUTO) 6.8 % (2.0-9.0); NEUTROPHILS # (AUTO) 5.6 K/uL (1.8-7.7); NEUTROPHILS % (AUTO) 76.3 % (40.0-70.0); PLATELET COUNT (AUTO) 143 K/uL (150-450); RED BLOOD CELL COUNT(AUTO) 3.29 MIL/uL (4.50-5.90); RED CELL DISTRIBUTION WIDTH 21.5 % (11.5-14.5); WHITE BLOOD COUNT (AUTO) 7.3 K/uL (4.5-11.0)
[2023-08-05] MEDS: POTASSIUM CHL 10 MEQ/WATER 50 ML IV PRN (06:24)
[2023-08-05] MEDS: CARVEDILOL 6.25 MG TABLET PO SCH ×2 (07:49→21:00)
[2023-08-05] MEDS: FAMOTIDINE 20 MG TABLET PO SCH ×2 (07:49→20:22)
[2023-08-05] MEDS: DOCUSATE SODIUM 100 MG/10 ML LIQUID UDCUP NG SCH ×2 (07:50→20:18)
[2023-08-05] MEDS: MULTIVITAMINS WITH MINERALS, THERAPEUTIC TABLET PO SCH (07:50)
[2023-08-05] MEDS ORDERED: VANCOMYCIN 1GM/WATER(PEG/NADA) 200 ML IV SCH (08:00)
[2023-08-05 09:14] LABS: RBC MORPHOLOGY COMMENT ABNORMAL RBC MORPH
[2023-08-05 10:16] LABS: GLUCOSE,POINT OF CARE 123 MG/DL (70-110)
[2023-08-05] MEDS ORDERED: SODIUM CHLORIDE 0.9% 250 ML IV ONE (15:33)
[2023-08-05 17:16] LABS: GLUCOSE,POINT OF CARE 127 MG/DL (70-110)
[2023-08-05 21:56] LABS: GLUCOSE,POINT OF CARE 109 MG/DL (70-110)
[2023-08-05 21:56] LABS: GLUCOSE,POINT OF CARE 150 MG/DL (70-110)
[2023-08-05] MEDS: CHLORHEXIDINE GLUCONATE 2% TOWELETTE [2'S/6'S] TP SCH (22:00)
[2023-08-06] VITALS (13 sets, daily range): BP systolic 80–134; BP diastolic 43–61; PULSE 89–102; RESP 21–24; TEMP 99.4–100.3; O2SAT 98–100
[2023-08-06] MEDS: HEPARIN SODIUM,PORCINE 5,000 UNITS/ML VIAL SQ SCH ×3 (00:24→17:17)
[2023-08-06] MEDS: VANCOMYCIN HCL 125 MG/2.5 ML SOLUTION ORAL.SYG PO SCH ×4 (00:25→17:21)
[2023-08-06] MEDS ORDERED: SODIUM CHLORIDE 0.9% 1,000 ML ONE (00:33)
[2023-08-06] MEDS: LevETIRAcetam 1,500 MG in DEXTROSE 5%-WATER 100 ML IV SCH ×2 (01:33→14:31)
[2023-08-06] MEDS: ACETAMINOPHEN 325 MG TABLET PO PRN ×3 (01:35→17:21)
[2023-08-06] MEDS: MIDAZOLAM HCL 100 MG in SODIUM CHLORIDE 0.9% 180 ML IV PRN (01:59)
[2023-08-06 04:36] LABS: GLUCOMETER DEV NAME(LOC) ICUN.5; GLUCOSE,POINT OF CARE 138 MG/DL (70-110)
[2023-08-06] MEDS: VALPROATE SODIUM 500 MG in DEXTROSE 5%-WATER 50 ML IV SCH ×2 (05:03→17:18)
[2023-08-06 05:49] LABS: BASOPHILS % (AUTO) 0.4 % (0.0-2.0); HEMOGLOBIN 7.6 g/dL (13.5-17.5); LYMPHOCYTES # (AUTO) 1.2 K/uL (1.0-4.8); LYMPHOCYTES % (AUTO) 17.6 % (22.0-44.0); MEAN CORPUSCULAR HEMOGLOBIN 21.6 pg (26.0-34.0); MEAN CORPUSCULAR HGB CONC 30.6 G/dL (31.0-37.0); MEAN CORPUSCULAR VOLUME 71 fL (80-100); MONOCYTES # (AUTO) 0.5 K/uL (0.1-1.0); MONOCYTES % (AUTO) 7.5 % (2.0-9.0); NEUTROPHILS # (AUTO) 4.9 K/uL (1.8-7.7); NEUTROPHILS % (AUTO) 73.5 % (40.0-70.0); PLATELET COUNT (AUTO) 162 K/uL (150-450); RED BLOOD CELL COUNT(AUTO) 3.53 MIL/uL (4.50-5.90); RED CELL DISTRIBUTION WIDTH 24.6 % (11.5-14.5); WHITE BLOOD COUNT (AUTO) 6.6 K/uL (4.5-11.0)
[2023-08-06 06:11] LABS: CALCIUM, TOTAL 8.8 mg/dL (8.8-10.5); CREATININE 1.51 mg/dL (0.60-1.30); MAGNESIUM 1.9 mg/dL (1.80-2.40); PHOSPHORUS 3.4 mg/dL (2.5-4.9); POTASSIUM 3.2 mmol/L (3.5-5.1)
[2023-08-06 06:19] LABS: RBC MORPHOLOGY COMMENT ABNORMAL RBC MORPH
[2023-08-06] MEDS: DOCUSATE SODIUM 100 MG/10 ML LIQUID UDCUP NG SCH (08:44)
[2023-08-06] MEDS: FAMOTIDINE 20 MG TABLET PO SCH (08:44)
[2023-08-06] MEDS: MULTIVITAMINS WITH MINERALS, THERAPEUTIC TABLET PO SCH (08:44)
[2023-08-06] MEDS: CARVEDILOL 6.25 MG TABLET PO SCH (08:44)
[2023-08-06 08:51] LABS: GLUCOMETER DEV NAME(LOC) ICUN.5; GLUCOSE,POINT OF CARE 133 MG/DL (70-110)
[2023-08-06] MEDS: POTASSIUM CHL 10 MEQ/WATER 50 ML IV PRN ×3 (08:51→13:47)
[2023-08-06 12:36] LABS: GLUCOMETER DEV NAME(LOC) ICUN.5; GLUCOSE,POINT OF CARE 137 MG/DL (70-110)
[2023-08-06] MEDS ORDERED: DiphenhydrAMINE HCL 50 MG/ML VIAL IVP PRN (17:30)
[2023-08-06] MEDS ORDERED: LORazepam 2 MG/ML VIAL IVP PRN (17:30)
[2023-08-06] MEDS: MORPHINE SULFATE 100 MG/NS/PF 100 ML IV PRN (20:05)
[2023-08-06 22:17] LABS: GLUCOMETER DEV NAME(LOC) ICUN.5; GLUCOSE,POINT OF CARE 133 MG/DL (70-110)
[2023-08-07] VITALS: BP 111/42; PULSE 108; RESP 30; TEMP 99.1
[2023-08-07 04:00] VITALS: BP 107/37; PULSE 107; RESP 20; TEMP 98.3
[2023-08-07 08:00] VITALS: BP 97/60; PULSE 113; RESP 16; TEMP 98.2
[2023-08-07] MEDS: MORPHINE SULFATE 100 MG/NS/PF 100 ML IV PRN (09:13)
[2023-08-07 12:00] VITALS: BP 104/62; PULSE 105; RESP 15; TEMP 97.9
[2023-08-07] MEDS ORDERED: MORPHINE SULFATE 2 MG/ML SYRINGE IVP PRN (14:30)
[2023-08-07] MEDS ORDERED: MORPHINE SULFATE 4 MG/ML SYRINGE IVP PRN (14:30)
[2023-08-07 16:00] VITALS: BP 121/54; PULSE 111; RESP 24; TEMP 98.1
[2023-08-07 19:30] VITALS: BP 109/59; PULSE 110; RESP 20; TEMP 97.7
[2023-08-08 04:22] VITALS: BP 100/61; PULSE 109; RESP 20; TEMP 98.4
== END 2023-08-08 11:55 | DRG 870 ==
LOC: EMS 14:49 → AHU 17:10 → 6S 18:19 → 5S 22:12 → ICU 07-22 07:00 → 6S 08-07 18:56
PROVIDERS: ADMIT Internal Medicine; ATTEND Internal Medicine
PROC: 03HY32Z Insertion of Monitoring Device into Upper Artery, Percutaneous Approach (ICD-10-PCS; 2023-07-21)
PROC: 5A1955Z Respiratory Ventilation, Greater than 96 Consecutive Hours (ICD-10-PCS; principal; 2023-07-22)
PROC: 5A12012 Performance of Cardiac Output, Single, Manual (ICD-10-PCS; 2023-07-22)
PROC: 0BH17EZ Insertion of Endotracheal Airway into Trachea, Via Natural or Artificial Opening (ICD-10-PCS; 2023-07-22)
PROC: 5A1D70Z Performance of Urinary Filtration, Intermittent, Less than 6 Hours Per Day (ICD-10-PCS; 2023-07-28)
PROC: 5A1D70Z Performance of Urinary Filtration, Intermittent, Less than 6 Hours Per Day (ICD-10-PCS; 2023-07-29)
PROC: 5A1D70Z Performance of Urinary Filtration, Intermittent, Less than 6 Hours Per Day (ICD-10-PCS; 2023-07-30)
DX: A41.89 Other specified sepsis (principal); R65.21 Severe sepsis with septic shock; N17.0 Acute kidney failure with tubular necrosis; J96.00 Acute respiratory failure, unspecified whether with hypoxia or hypercapnia; G92.8 Other toxic encephalopathy; G93.1 Anoxic brain damage, not elsewhere classified; L03.116 Cellulitis of left lower limb; L03.115 Cellulitis of right lower limb; F11.20 Opioid dependence, uncomplicated; Z99.11 Dependence on respirator [ventilator] status; E87.20 Acidosis, unspecified; I46.9 Cardiac arrest, cause unspecified; Z20.822 Contact with and (suspected) exposure to COVID-19; D63.8 Anemia in other chronic diseases classified elsewhere; I25.10 Atherosclerotic heart disease of native coronary artery without angina pectoris; Z66 Do not resuscitate; L98.499 Non-pressure chronic ulcer of skin of other sites with unspecified severity; I48.0 Paroxysmal atrial fibrillation; Z91.199 Patient's noncompliance with other medical treatment and regimen due to unspecified reason; Z79.899 Other long term (current) drug therapy; R56.9 Unspecified convulsions; G25.3 Myoclonus; N18.9 Chronic kidney disease, unspecified; E87.6 Hypokalemia; B96.89 Other specified bacterial agents as the cause of diseases classified elsewhere; I08.0 Rheumatic disorders of both mitral and aortic valves; B19.20 Unspecified viral hepatitis C without hepatic coma; R80.9 Proteinuria, unspecified; R31.29 Other microscopic hematuria; E87.5 Hyperkalemia; R68.0 Hypothermia, not associated with low environmental temperature; F15.10 Other stimulant abuse, uncomplicated; Z87.891 Personal history of nicotine dependence
CPT/HCPCS: 36245; 36569; 36600; 70450; 71045; 71275; 76937; 78806; 80048; 80053; 80202; 80307; 81001; 82570; 82595; 82805; 82962; 83605; 83615; 83735; 84100; 84145; 84156; 84166; 84300; 84484; 85025; 85610; 85651; 85730; 86140; 86160; 86803; 87040; 87070; 87077; 87081; 87186; 87205; 87324; 87340; 87449; 87522; 90935; 93005; 93306; 93308; 93312; 93971; 94002; 94003; 95816; 99285; A9547; J0360; J0696; J0712; J1265; J1644; J2060; J2250; J2270; J2543; J2704; J3370; J3480; J3490; J7030; J7040; J7050; J7060; Q9967; 36415-L1; 36415-TC